=== PATIENT | male | born 1970 | race Caucasian/White ===

== ENCOUNTER 2017-01-02 12:09 | Inpatient (IN) | payer MEDICARE ==
[2017-01-02] MEDS ORDERED: Hydromorphone 1 mg/ml Ampule IV ONE (12:22)
[2017-01-02] MEDS ORDERED: Sodium Chloride 0.9% 1000 ML 1,000 ML IV STA (12:22)
[2017-01-02] MEDS ORDERED: BENADRYL 50 MG/ML IV ONE (12:22)
[2017-01-02] MEDS ORDERED: Sodium Chloride 0.9% 1000 ML 1,000 ML ONE (12:26)
[2017-01-02] MEDS ORDERED: Hydromorphone 1 mg/ml Ampule ONE (12:26)
[2017-01-02] MEDS ORDERED: BENADRYL 50 MG/ML ONE (12:26)
[2017-01-02] MEDS ORDERED: PHARMACY DOSING REQUEST IJ ONE (12:36)
[2017-01-02] MEDS ORDERED: Invanz 1 GM*** 1 G in Sodium Chloride 100ML MINI-BAG PLUS 100 ML IV ONE (12:38)
[2017-01-02 12:44] LABS: VBG BASE EXCESS -0.2 (-2.0-2.0); VBG CARBOXYHEMOGLOBIN 2.3 % T HGB (0.0-6.9); VBG HCO3- 25.9 meq/L (22-28); VBG HEMOGLOBIN 12.6; VBG POTASSIUM 4.2 (3.5-5.1); VBG pH 7.35 (7.32-7.42)
--- NOTE | 2017-01-02 12:44 | ERPHSYRPT ---
- History of Present Illness Time Seen by Provider: 01/02/17 12:22 Source: patient Patient Subjective Stated Complaint: PT REPORTS STEPPING ON TAC WEDNESDAY NIGHT- REPORTS SEVERE PAIN TO LEFT FOOT-LOW GRADE FEVER Triage Nursing Assessment: BRUISING ET OPENED AREA NOTED TO LEFT FOOT-NO DRAINAGE AT THIS TIME Physician History: CC: foot pain Hx: 46 y/o patient of Dr Rodrigues. He states stepped on a tack a few days ago. Now the foot is swollen, painful, and red. No fever or chills. Was at [facility] ER last night but apparently left AMA. He has poorly controlled DM. He sees and takes xanax. ILL: DM- on lantus Surg: Orchiectomy after injury Lower Extremities Pain: foot: left Allergies/Adverse Reactions: bupropion HCl [From Wellbutrin] Allergy (Verified 01/02/17 12:22) "makes my skin crawl" tetracycline Allergy (Verified 01/02/17 12:22) hives Home Medications: Carvedilol 6.25 mg [Coreg 6.25 MG] 6.25 mg PO BID 11/15/15 [History] Lovastatin 20 mg PO HS 11/15/15 [History] Metformin HCl 500 mg [Glucophage 500 MG] 500 mg PO DAILY 11/15/15 [History ] Hx Tetanus, Diphtheria Vaccination/Date Given: Yes (2015) Hx Influenza Vaccination/Date Given: No Hx Pneumococcal Vaccination/Date Given: No Immunizations Up to Date: Yes - Review of Systems Constitutional: No Fever, No Chills Eyes: No Symptoms Ears, Nose, & Throat: No Symptoms Cardiac: No Chest Pain Abdominal/Gastrointestinal: No Abdominal Pain Musculoskeletal: Joint Pain (left foot), No Back Pain, No Neck Pain Skin: Skin Lesions (left plantar), No Rash Neurological: No Focal Weakness, No Headache, No Parasthesia All Other Systems: Reviewed and Negative - Past Medical History Pertinent Past Medical History: Yes Neurological History: Seizures ENT History: No Pertinent History Cardiac History: Coronary Artery Disease, Hypertension, Myocardial Infarction ( [place]) Respiratory History: COPD Endocrine Medical History: Diabetes Type II Musculoskeletal History: Arthritis, Other GI Medical History: No Pertinent History History: No Pertinent History Psycho-Social History: Depression, Other Male Reproductive Disorders: No Pertinent History Other Medical History: [place] x 2 smoking 1.5PPD 30 + years, Sleep apnea pt states he has a CPAP at home the he wears occationally when it is working. - Past Surgical History Past Surgical History: Yes Neuro Surgical History: No Pertinent History Cardiac: No Pertinent History, Cardiac Catheterization, Cardiac Stent Respiratory: No Pertinent History Gastrointestinal: No Pertinent History Genitourinary: No Pertinent History, Other Musculoskeletal: No Pertinent History, Orthopedic Surgery Male Surgical History: Testicular Surgery Other Surgical History: Three heart stents, DVT - Social History Smoking Status: Current every day smoker How long have you smoked: 30 years Exposure to second hand smoke: No Drug Use: marijuana Patient Lives Alone: No - Nursing Vital Signs Nursing Vital Signs: Initial Vital Signs Temperature 98.8 F Temperature Source Oral Pulse Rate 108 Respiratory Rate 22 Blood Pressure [Right Arm] 110/69 Pain Intensity 8 - Physical Exam General Appearance: alert Eyes, Ears, Nose, Throat Exam: moist mucous membranes Neck Exam: normal inspection, non-tender, supple Cardiovascular/Respiratory Exam: chest non-tender, normal breath sounds, regular rate/rhythm Gastrointestinal/Abdominal Exam: non-tender, soft Back Exam: normal inspection Neuro/Tendon Exam: normal motor functions Mental Status Exam: alert, oriented x 3, cooperative Skin Exam: warm, dry, No rash SpO2 Interpretation: normal SpO2: 97 Oxygen Delivery: Room Air Comments: left foot has swelling and diffuse tenderness. Large plantar area with some necrosis. Some erythema. Pulse intact. - Course Nursing assessment & vital signs reviewed: Yes - Radiology Exams left foot X-ray Interpretation: Reviewed by me, Negative Ordered Tests: Active Orders 24 hr Category Date Time Status IV Insertion STAT Care 01/02/17 12:22 Active FOOT (MINIMUM 3 VIEWS) Stat Exams 01/02/17 12:23 Taken BLOOD CULTURE Stat Lab 01/02/17 12:45 Received CBC W DIFF Stat Lab 01/02/17 12:45 Completed CMP Stat Lab 01/02/17 12:45 Completed Erythrocyte Sedimentation Rate Stat Lab 01/02/17 12:45 Completed Lactic Acid Urgent Lab 01/02/17 12:43 Completed Lactic Acid Urgent Lab 01/02/17 13:33 Ordered UA Stat Lab 01/02/17 13:34 Received Urine Triage Profile Stat Lab 01/02/17 13:34 Received VENOUS BLOOD GAS Urgent Lab 01/02/17 12:43 Completed Medication Summary Generic Name Dose Route Start Last Admin Trade Name Freq PRN Reason Stop Dose Admin Vancomycin HCl 1.5 gm/ Sodium 500 mls @ 250 mls/hr 01/02/17 12:45 Chloride IV 02/01/17 12:44 Q12HT ELINOR Discontinued Medications Generic Name Dose Route Start Last Admin Trade Name Chris PRN Reason Stop Dose Admin Diphenhydramine HCl 25 mg 01/02/17 12:22 01/02/17 12:29 Benadryl 50 Mg/Ml IV 01/02/17 12:23 25 mg STAT ONE Administration Diphenhydramine HCl Confirm 01/02/17 12:26 Benadryl 50 Mg/Ml Administered 01/02/17 12:27 Dose 50 mg .ROUTE .STK-MED ONE Hydromorphone HCl 1 mg 01/02/17 12:22 01/02/17 12:29 Hydromorphone 1 Mg/Ml Ampule IV 01/02/17 12:23 1 mg STAT ONE Administration Hydromorphone HCl Confirm 01/02/17 12:26 Hydromorphone 1 Mg/Ml Ampule Administered 01/02/17 12:27 Dose 1 mg .ROUTE .STK-MED ONE Sodium Chloride 1,000 mls @ 999 mls/hr 01/02/17 12:22 01/02/17 12:30 Sodium Chloride 0.9% 1000 Ml IV 01/02/17 13:22 999 mls/hr .Q1H1M STA Administration Sodium Chloride Confirm 01/02/17 12:26 Sodium Chloride 0.9% 1000 Ml Administered 01/02/17 12:27 Dose 1,000 mls @ ud .ROUTE .STK-MED ONE Ertapenem 1 g/ Sodium Chloride 100 mls @ 100 mls/hr 01/02/17 12:38 01/02/17 12:52 IV 01/02/17 13:37 100 mls/hr STAT ONE Administration Non-Formulary Medication 1 each 01/02/17 12:36 01/02/17 12:57 Pharmacy Dosing Request IJ 01/02/17 12:37 1 each STAT ONE Administration Lab/Rad Data: Laboratory Result Diagrams 01/02/17 12:45 01/02/17 12:45 Laboratory Results 01/02/17 01/02/17 01/02/17 Range/Units 12:45 12:45 12:45 WBC 13.3 H (4.0-10.5) K/mm3 RBC 4.31 (4.1-5.6) M/mm3 Hgb 12.0 L (12.5-18.0) gm/dl Hct 37.2 L (42-50) % MCV 86.3 (78-100) fl MCH 27.8 (26-32) pg MCHC 32.3 (32-36) g/dl RDW 12.8 (11.5-14.0) % Plt Count 233 (150-450) K/mm3 MPV 11.4 H (6-9.5) fl Gran % 84.2 H (36.0-66.0) % Lymphocytes % 7.6 L (24.0-44.0) % Monocytes % 7.2 (0.0-12.0) % Eosinophils % 0.8 (0.00-5.0) % Basophils % 0.2 (0.0-0.4) % Basophils # 0.02 (0-0.4) ESR 74 H (0-15) mm/hr VBG pH (7.32-7.42) VBG pCO2 at Pat Temp (42-55) mm/Hg VBG pO2 at Pat Temp (25-40) mm/Hg VBG HCO3 (22-28) meq/L VBG O2 Sat (Chhaya) (95-100) VBG Base Excess (-2.0-2.0) VBG Hemoglobin VBG Carboxyhemoglobin (0.0-6.9) % T HGB POC Potassium (3.5-5.1) Sodium 130 L (136-145) mEq/L Potassium 4.0 (3.5-5.1) mEq/L Chloride 98 (98-107) mEq/L Carbon Dioxide 23.6 (21-32) mEq/L Anion Gap 12.5 (5-15) MEQ/L BUN 7 L (9-20) mg/dL Creatinine 0.86 (0.55-1.30) mg/dl Estimated GFR > 60 ML/MIN Glucose 447 H (70-110) MG/DL Lactic Acid (0.4-2.0) Calcium 8.1 L (8.5-10.1) mg/dL Total Bilirubin 0.2 (0.2-1.0) mg/dL AST 18 (15-37) U/L ALT 19 (12-78) U/L Alkaline Phosphatase 143 H (46-116) U/L Serum Total Protein 6.9 (6.4-8.2) gm/dL Albumin 2.5 L (3.4-5.0) g/dL 01/02/17 01/02/17 Range/Units 12:43 12:43 WBC (4.0-10.5) K/mm3 RBC (4.1-5.6) M/mm3 Hgb (12.5-18.0) gm/dl Hct (42-50) % MCV (78-100) fl MCH (26-32) pg MCHC (32-36) g/dl RDW (11.5-14.0) % Plt Count (150-450) K/mm3 MPV (6-9.5) fl Gran % (36.0-66.0) % Lymphocytes % (24.0-44.0) % Monocytes % (0.0-12.0) % Eosinophils % (0.00-5.0) % Basophils % (0.0-0.4) % Basophils # (0-0.4) ESR (0-15) mm/hr VBG pH 7.35 (7.32-7.42) VBG pCO2 at Pat Temp 47 (42-55) mm/Hg VBG pO2 at Pat Temp 41 H (25-40) mm/Hg VBG HCO3 25.9 (22-28) meq/L VBG O2 Sat (Chhaya) 80.0 L (95-100) VBG Base Excess -0.2 (-2.0-2.0) VBG Hemoglobin 12.6 VBG Carboxyhemoglobin 2.3 (0.0-6.9) % T HGB POC Potassium 4.2 (3.5-5.1) Sodium (136-145) mEq/L Potassium (3.5-5.1) mEq/L Chloride (98-107) mEq/L Carbon Dioxide (21-32) mEq/L Anion Gap (5-15) MEQ/L BUN (9-20) mg/dL Creatinine (0.55-1.30) mg/dl Estimated GFR ML/MIN Glucose (70-110) MG/DL Lactic Acid 3.0 H (0.4-2.0) Calcium (8.5-10.1) mg/dL Total Bilirubin (0.2-1.0) mg/dL AST (15-37) U/L ALT (12-78) U/L Alkaline Phosphatase (46-116) U/L Serum Total Protein (6.4-8.2) gm/dL Albumin (3.4-5.0) g/dL - Progress Progress Note: 01/02/17 13:43 Medicated. IV Vanc and invanz given. IVF bolus given. He needs admission. Called DR mensah for Bjorn who will admit to IP. Discussed with .: Suzanne Will see patient in: hospital (full admit) Counseled pt/family regarding: lab results, diagnosis, need for follow-up, rad results - Departure Time of Disposition: 13:44 Departure Disposition: In-patient Admission Clinical Impression: Diabetic infection of left foot, Uncontrolled diabetes mellitus Condition: Fair Critical Care Time: No Referrals: VINNIE RODRIGUES [Primary Care Provider] -
[2017-01-02 12:50] LABS: BASOPHIL % 0.2 % (0.0-0.4); Eosinophil % 0.8 % (0.00-5.0); Granulocytes % 84.2 % (36.0-66.0); Lymphocytes % 7.6 % (24.0-44.0); Mean Cell Volume 86.3 fl (78-100); Mean Corpuscular Hemoglobin 27.8 pg (26-32); Mean Platelet Volume 11.4 fl (6-9.5); Monocytes % 7.2 % (0.0-12.0); Platelet Count 233 K/mm3 (150-450); Red Blood Count 4.31 M/mm3 (4.1-5.6); Red Cell Distribution Width 12.8 % (11.5-14.0); White Blood Count 13.3 K/mm3 (4.0-10.5)
[2017-01-02 13:09] LABS: BILIRUBIN,TOTAL 0.2 mg/dL (0.2-1.0); BLOOD UREA NITROGEN 7 mg/dL (9-20); SGPT/ALT 19 U/L (12-78); Total Protein 6.9 gm/dL (6.4-8.2)
[2017-01-02 13:22] LABS: ALBUMIN 2.5 g/dL (3.4-5.0); ALKALINE PHOSPHATASE 143 U/L (46-116); ANION GAP 12.5 MEQ/L (5-15); CHLORIDE 98 mEq/L (98-107); Carbon Dioxide 23.6 mEq/L (21-32); Glucose 447 MG/DL (70-110); SGOT/AST 18 U/L (15-37); SODIUM 130 mEq/L (136-145)
[2017-01-02 13:42] LABS: Collection Type VOID
[2017-01-02 13:43] LABS: COMPLETE URINE MICROSCOPIC? NO
[2017-01-02] MEDS ORDERED: NovoLOG Insulin SQ ONE (13:45)
[2017-01-02] MEDS ORDERED: NovoLOG Insulin ONE (13:54)
[2017-01-02] MEDS: VANCOCIN 1 GM VIAL*** 1.5 GM in Sodium Chloride 0.9% 500 ML 500 ML IV SCH ×2 (13:57→21:17)
[2017-01-02] MEDS ORDERED: PHARMACY DOSING REQUIRED: VANCOMYCIN IV ONE (14:33)
[2017-01-02] MEDS: TYLENOL 325 MG PO PRN (16:07)
[2017-01-02] MEDS: Sodium Chloride 0.9% 1000 ML 1,000 ML IV SCH (16:10)
[2017-01-02] MEDS ORDERED: Zofran 4 MG/2 ML VIAL IV PRN (17:12)
[2017-01-02] MEDS: NovoLOG Insulin SQ PRN (17:18)
[2017-01-02] MEDS: DILAUDID 2 MG INJECTION IV PRN (17:32)
--- NOTE | 2017-01-02 20:21 | PCM.HP ---
History of Present Illness - Chief Complaint Chief Complaint: Diabetic Foot infection History of Present Illness: is a 46 year old male who reports he stepped on a carpet tack 4 days ago at home, he is a diabetic and doesn't have much sensation. His heel became swollen and started draining purulent material and he has pain the heel now. He denies any known fever. - Review of Systems Constitutional: No Fever, No Chills Cardiac: No Chest Pain, No Edema, No Syncope Abdominal/Gastrointestinal: No Abdominal Pain, No Nausea, No Vomiting, No Diarrhea Skin: Other (heel drainage, pain and swelling) Medications & Allergies Home Medications: Home Medication List Metformin HCl 500 mg [Glucophage 500 MG] 500 mg PO BID 11/15/15 [History Confirmed 01/02/17] Alprazolam [Xanax 0.5 mg] 1 - 2 tab PO Q4HPRN PRN 01/02/17 [History Confirmed ] Amlodipine Besylate 5 mg [Norvasc 5 mg] 5 mg PO DAILY 01/02/17 [History Confirmed 01/02/17] Insulin Glargine [Lantus Insulin] 50 units SQ HS 01/02/17 [History Confirmed ] Lisinopril 5 mg [Zestril 5 MG] 5 mg PO DAILY 01/02/17 [History Confirmed 01/02/17] Metoprolol Tartrate 50 mg [Lopressor 50 MG] 50 mg PO BID 01/02/17 [ History Confirmed 01/02/17] Sertraline HCl 50 mg [Zoloft 50 mg Tablet] 50 mg PO DAILY 01/02/17 [History Confirmed 01/02/17] Sumatriptan Succinate [Imitrex] 25 mg PO Q2H/PRN PRN 01/02/17 [History Confirmed 01/02/17] Triamterene/Hydrochlorothiazid [Triamterene-Hctz 37.5-25 mg Cp] 0.5 tab PO DAILY 01/02/17 [History Confirmed 01/02/17] Allergies/Adverse Reactions: Allergies Allergy/AdvReac Type Severity Reaction Status Date / Time bupropion HCl Allergy Verified 01/02/17 12:22 [From Wellbutrin] tetracycline Allergy Verified 01/02/17 12:22 - Past Medical History Past Medical History: Yes Neurological History: Seizures ENT History: No Pertinent History Cardiac History: Coronary Artery Disease, Hypertension, Myocardial Infarction ( [place]) Respiratory History: COPD Endocrine Medical History: Diabetes Type II Musculoskelatal History: Arthritis, Other GI Medical History: No Pertinent History History: No Pertinent History Pyscho-Social History: Depression, Other Male Reproductive Disorders: No Pertinent History Comment: [place] x 2 smoking 1.5PPD 30 + years, Sleep apnea pt states he has a CPAP at home the he wears occationally when it is working. - Past Surgical History Past Surgical History: Yes Neuro Surgical History: No Pertinent History Cardiac History: Cardiac Catheterization, Cardiac Stent Respiratory Surgery: No Pertinent History GI Surgical History: No Pertinent History Genitourinary Surgical Hx: Other Musculskeletal Surgical Hx: Orthopedic Surgery Male Surgical History: Testicular Surgery Other Surgical History: Three heart stents, DVT - Social History Smoking Status: Current every day smoker How long have you smoked: 30 years Exposure to second hand smoke: Yes Alcohol: Rarely Drug Use: marijuana - Physical Exam Vital Signs: Vital Signs - 24 hr Temp Pulse Resp BP Pulse Ox 01/02/17 15:17 98.9 F 108 H 20 123/71 93 L 01/02/17 14:38 98.9 F 108 H 20 123/71 93 L 01/02/17 14:00 104 H 16 107/69 96 01/02/17 13:44 97 01/02/17 12:48 108 H 22 110/69 96 01/02/17 12:15 98.8 F 109 H 20 120/70 97 General Appearance: no apparent distress, alert Respiratory Exam: normal breath sounds, lungs clear, No respiratory distress Cardiovascular Exam: regular rate/rhythm, normal heart sounds, normal peripheral pulses Gastrointestinal/Abdomen Exam: soft Extremity Exam: other (left heel large amount of soft tissue swelling, erythema and tenderness. mild drainage from open area on plantar surface of central area of heel) Results - Labs Lab/Micro Results: Accuchecks Date 01/02/17 Time 16:30 Accucheck Value: 165 Accuchecks Date 01/02/17 Time 16:30 Accucheck Value: 165 - Other Procedures and Tests Respiratory Therapy 01/02/17 16:26 BiPap/CPAP Assessment ROUTINE Assessment/Plan (1) Diabetic infection of left foot Current Visit: Yes Status: Acute Assessment & Plan: continue vanc and invanz, wound culture pending. due to diabetes needs broad coverage, likely polymicrobial diabetic infection. will monitor closely, may require further imaging to evaluate for osteo Code(s): E11.69 - TYPE 2 DIABETES MELLITUS WITH OTHER SPECIFIED COMPLICATION; L08.9 - LOCAL INFECTION OF THE SKIN AND SUBCUTANEOUS TISSUE, UNSP (2) Uncontrolled diabetes mellitus Current Visit: Yes Status: Acute Assessment & Plan: cover with insulin Code(s): E11.65 - TYPE 2 DIABETES MELLITUS WITH HYPERGLYCEMIA
[2017-01-02] MEDS ORDERED: xanAX 0.5 MG PO PRN (20:28)
[2017-01-02] MEDS ORDERED: NORVASC 5 MG PO ONE ×2 (20:30→22:00)
[2017-01-02] MEDS ORDERED: Zestril 5 MG PO ONE ×2 (21:00→22:00)
--- NOTE | 2017-01-02 21:07 | XRAY ---
Indication: Plantar puncture wound. Comparison: None 3 nonweightbearing views of the left foot obtained. No bony, articular, or soft tissue abnormalities.
[2017-01-02] MEDS ORDERED: ZOLOFT 50 MG TABLET PO ONE (22:00)
[2017-01-02] MEDS ORDERED: Lopressor 50 MG PO SCH ×2 (22:00)
[2017-01-02] MEDS: NICODERM CQ 14 MG TOP SCH (22:56)
[2017-01-03] MEDS: Sodium Chloride 0.9% 1000 ML 1,000 ML IV SCH ×2 (02:21→14:09)
[2017-01-03 05:41] LABS: BASOPHIL % 0.2 % (0.0-0.4); Eosinophil % 0.7 % (0.00-5.0); Granulocytes % 84.5 % (36.0-66.0); Lymphocytes % 7.5 % (24.0-44.0); Mean Cell Volume 85.9 fl (78-100); Mean Corpuscular Hemoglobin 27.4 pg (26-32); Monocytes % 7.1 % (0.0-12.0); Platelet Count 253 K/mm3 (150-450); Red Blood Count 4.33 M/mm3 (4.1-5.6); Red Cell Distribution Width 12.9 % (11.5-14.0); White Blood Count 15.3 K/mm3 (4.0-10.5)
[2017-01-03] MEDS ORDERED: DILAUDID 2 MG INJECTION ONE (05:45)
[2017-01-03] MEDS: DILAUDID 2 MG INJECTION IV PRN ×5 (05:48→23:37)
[2017-01-03 05:56] LABS: ALBUMIN 2.3 g/dL (3.4-5.0); ALKALINE PHOSPHATASE 300 U/L (46-116); ANION GAP 11.4 MEQ/L (5-15); BILIRUBIN,TOTAL 0.3 mg/dL (0.2-1.0); BLOOD UREA NITROGEN 11 mg/dL (9-20); CHLORIDE 101 mEq/L (98-107); Carbon Dioxide 24.6 mEq/L (21-32); Glucose 179 MG/DL (70-110); Potassium 4.2 mEq/L (3.5-5.1); SGOT/AST 25 U/L (15-37); SGPT/ALT 24 U/L (12-78); SODIUM 133 mEq/L (136-145); Total Protein 6.7 gm/dL (6.4-8.2)
--- NOTE | 2017-01-03 06:33 | PCM.NOTE ---
Date and Time: 01/03/17630 Subjective Assessment: left foot pain still rather severe, improved with dilaudid. has some drainage, no new complaints. elevated sed rate noted Objective Exam General Appearance: no apparent distress, alert Respiratory Exam: normal breath sounds, lungs clear, No respiratory distress Cardiovascular Exam: regular rate/rhythm, normal heart sounds Gastrointestinal/Abdomen Exam: soft, No tenderness, No mass Extremity Exam: other (left heel with soft tissue swelling, mild purulent drainage, surrounding erythema unchanged) OBJECTIVE DATA Vital Signs: Vital Signs - 24 hr Temp Pulse Resp BP Pulse Ox 01/03/17 03:54 98.1 F 73 20 118/81 97 01/03/17 00:00 97.3 F 69 20 123/66 97 01/02/17 20:00 97.0 F 67 22 120/63 96 01/02/17 15:17 98.9 F 108 H 20 123/71 93 L 01/02/17 14:38 98.9 F 108 H 20 123/71 93 L 01/02/17 14:00 104 H 16 107/69 96 01/02/17 13:44 97 01/02/17 12:48 108 H 22 110/69 96 01/02/17 12:15 98.8 F 109 H 20 120/70 97 Pain Assessment - Last Documented Pain Intensity 5 Pain Scale Used 0-10 Pain Scale Intake and Output: Intake & Output 12/31/16 01/01/17 01/02/17 01/03/17 11:59 11:59 11:59 11:59 Intake Total 4462 Balance 4462 Weight 95.935 kg Lab Results: Accuchecks Date 01/02/17 Date 01/02/17 Time 22:00 Time 16:30 Accucheck Value: 112 Accucheck Value: 165 Lab Results-Last 24 Hours 01/03/17 01/03/17 01/03/17 Range/Units 05:30 05:30 05:30 WBC 15.3 H (4.0-10.5) K/mm3 RBC 4.33 (4.1-5.6) M/mm3 Hgb 11.9 L (12.5-18.0) gm/dl Hct 37.2 L (42-50) % MCV 85.9 (78-100) fl MCH 27.4 (26-32) pg MCHC 32.0 (32-36) g/dl RDW 12.9 (11.5-14.0) % Plt Count 253 (150-450) K/mm3 MPV 11.0 H (6-9.5) fl Gran % 84.5 H (36.0-66.0) % Lymphocytes % 7.5 L (24.0-44.0) % Monocytes % 7.1 (0.0-12.0) % Eosinophils % 0.7 (0.00-5.0) % Basophils % 0.2 (0.0-0.4) % Basophils # 0.03 (0-0.4) ESR 82 H (0-15) mm/hr Sodium 133 L (136-145) mEq/L Potassium 4.2 (3.5-5.1) mEq/L Chloride 101 (98-107) mEq/L Carbon Dioxide 24.6 (21-32) mEq/L Anion Gap 11.4 (5-15) MEQ/L BUN 11 (9-20) mg/dL Creatinine 0.63 (0.55-1.30) mg/dl Estimated GFR > 60 ML/MIN Glucose 179 H (70-110) MG/DL Calcium 8.2 L (8.5-10.1) mg/dL Total Bilirubin 0.3 (0.2-1.0) mg/dL AST 25 (15-37) U/L ALT 24 (12-78) U/L Alkaline Phosphatase 300 H (46-116) U/L Serum Total Protein 6.7 (6.4-8.2) gm/dL Albumin 2.3 L (3.4-5.0) g/dL Radiology Exams: Radiology Procedures Category Date Time Status MRI LOWER EXT JOINT W/CONTRAST [MRI] Urgent Exams 01/03/17 06:30 Ordered Assessment/Plan (1) Diabetic infection of left foot Current Visit: Yes Status: Acute Assessment & Plan: continue vanc and invanz, elevated sed rate worrisome for osteo. will get MRI left foot with contrast to evaluate bony involvement Code(s): E11.69 - TYPE 2 DIABETES MELLITUS WITH OTHER SPECIFIED COMPLICATION; L08.9 - LOCAL INFECTION OF THE SKIN AND SUBCUTANEOUS TISSUE, UNSP (2) Uncontrolled diabetes mellitus Current Visit: Yes Status: Acute Assessment & Plan: last 2 accuchecks very well controlled since admission, was elevated on arrival. Code(s): E11.65 - TYPE 2 DIABETES MELLITUS WITH HYPERGLYCEMIA
[2017-01-03] MEDS ORDERED: [UNRECOGNIZED DRUG - OTHER] PO SCH (10:00)
[2017-01-03] MEDS: Lopressor 50 MG PO SCH ×2 (10:09→22:43)
[2017-01-03] MEDS: NORVASC 5 MG PO SCH (10:09)
[2017-01-03] MEDS: Zestril 5 MG PO SCH (10:09)
[2017-01-03] MEDS: Invanz 1 GM*** 1 G in Sodium Chloride 100ML MINI-BAG PLUS 100 ML IV SCH (10:10)
[2017-01-03] MEDS: ENOXAPARIN SODIUM SQ SCH (10:10)
[2017-01-03] MEDS: Maxzide-25MG Tablet PO SCH (10:26)
[2017-01-03] MEDS: ZOLOFT 50 MG TABLET PO SCH (10:28)
[2017-01-03] MEDS: VANCOCIN 1 GM VIAL*** 1.5 GM in Sodium Chloride 0.9% 500 ML 500 ML IV SCH ×2 (10:58→22:43)
[2017-01-03] MEDS: NovoLOG Insulin SQ PRN ×3 (11:59→22:42)
[2017-01-03] MEDS: NICODERM CQ 14 MG TOP SCH (14:20)
[2017-01-03] MEDS: Lantus Insulin SQ SCH (22:41)
[2017-01-04] MEDS: Sodium Chloride 0.9% 1000 ML 1,000 ML IV SCH ×3 (00:51→18:18)
[2017-01-04] MEDS: DILAUDID 2 MG INJECTION IV PRN ×3 (04:02→20:41)
[2017-01-04] MEDS ORDERED: TROUGH DRUG LEVELS IJ ONE (09:30)
[2017-01-04 09:56] LABS: ALBUMIN 2.2 g/dL (3.4-5.0); ALKALINE PHOSPHATASE 234 U/L (46-116); ANION GAP 9.7 MEQ/L (5-15); BILIRUBIN,TOTAL 0.3 mg/dL (0.2-1.0); BLOOD UREA NITROGEN 8 mg/dL (9-20); CHLORIDE 102 mEq/L (98-107); Carbon Dioxide 29.9 mEq/L (21-32); Glucose 175 MG/DL (70-110); SGOT/AST 13 U/L (15-37); SGPT/ALT 19 U/L (12-78); SODIUM 138 mEq/L (136-145)
[2017-01-04 10:00] LABS: BASOPHIL % 0.1 % (0.0-0.4); Eosinophil % 0.8 % (0.00-5.0); Granulocytes % 83.1 % (36.0-66.0); Lymphocytes % 9.1 % (24.0-44.0); Mean Cell Volume 86.1 fl (78-100); Mean Platelet Volume 11.7 fl (6-9.5); Monocytes % 6.9 % (0.0-12.0); Platelet Count 252 K/mm3 (150-450); Red Blood Count 4.24 M/mm3 (4.1-5.6); Red Cell Distribution Width 12.8 % (11.5-14.0); White Blood Count 14.7 K/mm3 (4.0-10.5)
[2017-01-04] MEDS: TYLENOL 325 MG PO PRN ×2 (10:13→19:35)
[2017-01-04] MEDS: Lopressor 50 MG PO SCH ×2 (10:14→21:44)
[2017-01-04] MEDS: Maxzide-25MG Tablet PO SCH (10:14)
[2017-01-04] MEDS: xanAX 0.5 MG PO PRN (10:14)
[2017-01-04] MEDS: NORVASC 5 MG PO SCH (10:15)
[2017-01-04] MEDS: ZOLOFT 50 MG TABLET PO SCH (10:15)
[2017-01-04] MEDS: Zestril 5 MG PO SCH (10:15)
[2017-01-04] MEDS: Invanz 1 GM*** 1 G in Sodium Chloride 100ML MINI-BAG PLUS 100 ML IV SCH (10:16)
[2017-01-04] MEDS: ENOXAPARIN SODIUM SQ SCH (10:42)
--- NOTE | 2017-01-04 10:46 | CONS ---
CONSULT DATE: 01/04/17 This patient was seen for Dr. Hanks or Dr. Beauchamp whoever is on-call for our group today. Was asked that I see as I was down here seeing some other patients. HISTORY OF PRESENT ILLNESS: 46 y/o diabetic gentleman apparently stepped on a carpet tack last week. Had severe pain. Had fever. Had WBC of 15. He apparently was in [facility] over the weekend and later came here reportedly a couple of days ago and was admitted for IV antibiotics. PAST MEDICAL HISTORY: Heart disease, hypertension, myocardial infarction, seizures, type 2 diabetes, and arthritis. History of deep vein thrombosis in the past reportedly. PAST SURGICAL HISTORY: Had orchiectomy in the past. He denied any foot surgery in the past, although it should be noted that he has followed up with Dr. Joseph in the past. Has had 3 coronary stents. HOME MEDICATIONS: Has been on metformin, lovastatin, carvedilol for some hypertension. ALLERGIES: WELLBUTRIN AND TETRACYCLINE. SOCIAL HISTORY: Smokes a pack and a half per day for years. Uses CPAP at home. No alcohol abuse. He also uses marijuana at times. REVIEW OF SYSTEMS: 12 systems reviewed per admission assessment pertinent for as noted above. PHYSICAL EXAMINATION: GENERAL: Chronically ill gentleman. HEENT: Sclerae nonicteric. NECK: No JVD. CHEST: Equal excursion. Nonlabored breathing. CVS: Regular rhythm. He does appear to have powerful dorsalis pedis pulses and posterior tibial on this left foot. ABDOMEN: Soft, nondistended. NEURO: Alert, moving extremities grossly symmetrically. EXTREMITIES: Pertinent for the left foot. There is a puncture wound on the plantar surface of the foot with some discoloration or slight cyanosis, almost bruised-like appearance out towards the lateral aspect of the foot. Whether this is any infection or not it is unclear as there is a small amount of drainage from the open wound. Hgb A1C is 12.3, so obviously not a good controlled diabetic. His WBC was apparently 15.3. They said that was yesterday's result. IMPRESSION: 1. DIABETIC FOOT INFECTION. Feel likely would need benefit of debridement. [place] long-term august, likely needs podiatry opinion as he followed up with Dr. Joseph in the past, but currently needs acute debridement. He understands the risk of bleeding; infection; that there may be some tissue necrosis out laterally and may have to filet this whole area up to allow for drainage. He understands there is a risk of ongoing infection or necrosis surrounding the area even risk of forefoot or even limb or foot loss given his smoking history, heart disease, peripheral vascular disease, and long-standing diabetes that does not appear in good control with an A1C of 12 when he was admitted. He understands the very high risk of ongoing infection or necrosis possibly requiring other procedures or even amputation if he fails to improve. He may need opinion from electronic equipment maint tech about antibiotic bead placement. Otherwise, continue IV antibiotics. Unfortunately, he had breakfast this morning. Will see if anesthesia approves doing his debridement today or not. Thank you for the consult. Again, this patient was seen for Dr. Hanks or Dr. Beauchamp whoever is on-call for our group today.
[2017-01-04 10:56] LABS: Mean Corpuscular Hemoglobin 27.5 pg (26-32)
[2017-01-04] MEDS ORDERED: Lactated Ringers 1,000 ML IV SCH (11:30)
[2017-01-04] MEDS: VANCOCIN 1 GM VIAL*** 1.5 GM in Sodium Chloride 0.9% 500 ML 500 ML IV SCH (11:38)
[2017-01-04] MEDS: NovoLOG Insulin SQ SCH ×2 (11:50→16:46)
--- NOTE | 2017-01-04 12:44 | PCM.NOTE ---
Date and Time: 01/04/17 1239 Subjective Assessment: Patient continues to have severe pain in his left foot. He reports that he is checking his blood glucoses at home but he has a history of noncompliance and a history of NV and states he only occasionally takes an aspirin. He reports he stepped on a carpet tack on Wednesday and was able to pull it out but didn't realize it was there right away. - Review of Systems Constitutional: Other (pain in his left foot) Eyes: No Symptoms Ears, Nose, & Throat: No Symptoms Respiratory: No Symptoms Cardiac: No Symptoms Abdominal/Gastrointestinal: No Symptoms Genitourinary Symptoms: No Symptoms Musculoskeletal: No Symptoms Skin: Cellulitis, Other (Discoloration of left heel and lateral aspect of foot) Objective Exam General Appearance: mild distress, obese Neurologic Exam: alert, cooperative, normal mood/affect Skin Exam: normal color, warm, dry, other (left heel with discoloration and erythema along the lateral aspect, some active drainage of pus mixed with blood. ) OBJECTIVE DATA Vital Signs: Vital Signs - 24 hr Temp Pulse Resp BP Pulse Ox 01/04/17 11:49 98.2 F 85 18 112/74 94 L 01/04/17 07:21 98.6 F 100 H 18 132/83 92 L 01/04/17 04:00 98.5 F 75 17 113/75 93 L 01/04/17 00:00 98.9 F 93 H 24 115/72 91 L 01/03/17 19:58 98.1 F 91 H 14 96/54 93 L 01/03/17 16:00 98.1 F 80 19 99/50 96 Pain Assessment - Last Documented Pain Intensity 10 Pain Scale Used 0-10 Pain Scale Intake and Output: Intake & Output 01/02/17 01/03/17 01/04/17 01/05/17 06:59 06:59 06:59 06:59 Intake Total 4462 4190 480 Output Total 550 Balance 4461 2290 480 Weight 95.935 kg Lab Results: Accuchecks Date 01/04/17 Date 01/03/17 Date 01/03/17 Time 07:30 Time 22:00 Time 16:30 Accucheck Value: 138 Accucheck Value: 286 Accucheck Value: 235 Lab Results-Last 24 Hours 01/03/17 01/04/17 01/04/17 Range/Units 05:25 09:28 09:28 WBC 14.7 H (4.0-10.5) K/mm3 RBC 4.24 (4.1-5.6) M/mm3 Hgb 11.7 L (12.5-18.0) gm/dl Hct 36.5 L (42-50) % MCV 86.1 (78-100) fl MCH 27.5 (26-32) pg MCHC 32.1 (32-36) g/dl RDW 12.8 (11.5-14.0) % Plt Count 252 (150-450) K/mm3 MPV 11.7 H (6-9.5) fl Gran % 83.1 H (36.0-66.0) % Lymphocytes % 9.1 L (24.0-44.0) % Monocytes % 6.9 (0.0-12.0) % Eosinophils % 0.8 (0.00-5.0) % Basophils % 0.1 (0.0-0.4) % Basophils # 0.02 (0-0.4) Sodium 138 (136-145) mEq/L Potassium 4.0 (3.5-5.1) mEq/L Chloride 102 (98-107) mEq/L Carbon Dioxide 29.9 (21-32) mEq/L Anion Gap 9.7 (5-15) MEQ/L BUN 8 L (9-20) mg/dL Creatinine 0.66 (0.55-1.30) mg/dl Estimated GFR > 60 ML/MIN Glucose 175 H (70-110) MG/DL Hemoglobin A1c 12.3 H (4.5-6.2) Calcium 8.0 L (8.5-10.1) mg/dL Total Bilirubin 0.3 (0.2-1.0) mg/dL AST 13 L (15-37) U/L ALT 19 (12-78) U/L Alkaline Phosphatase 234 H (46-116) U/L Serum Total Protein 6.0 L (6.4-8.2) gm/dL Albumin 2.2 L (3.4-5.0) g/dL Vancomycin Trough (10-20) UG/ML 01/04/17 Range/Units 09:28 WBC (4.0-10.5) K/mm3 RBC (4.1-5.6) M/mm3 Hgb (12.5-18.0) gm/dl Hct (42-50) % MCV (78-100) fl MCH (26-32) pg MCHC (32-36) g/dl RDW (11.5-14.0) % Plt Count (150-450) K/mm3 MPV (6-9.5) fl Gran % (36.0-66.0) % Lymphocytes % (24.0-44.0) % Monocytes % (0.0-12.0) % Eosinophils % (0.00-5.0) % Basophils % (0.0-0.4) % Basophils # (0-0.4) Sodium (136-145) mEq/L Potassium (3.5-5.1) mEq/L Chloride (98-107) mEq/L Carbon Dioxide (21-32) mEq/L Anion Gap (5-15) MEQ/L BUN (9-20) mg/dL Creatinine (0.55-1.30) mg/dl Estimated GFR ML/MIN Glucose (70-110) MG/DL Hemoglobin A1c (4.5-6.2) Calcium (8.5-10.1) mg/dL Total Bilirubin (0.2-1.0) mg/dL AST (15-37) U/L ALT (12-78) U/L Alkaline Phosphatase (46-116) U/L Serum Total Protein (6.4-8.2) gm/dL Albumin (3.4-5.0) g/dL Vancomycin Trough 7.7 L (10-20) UG/ML Radiology Exams: Radiology Procedures Category Date Time Status ARTERIAL BILAT LOWER EXTREMITY [US] Stat Exams 01/04/17 10:36 Taken Multi-Disciplinary Progress Notes: Multi-Disciplinary Progress Notes 01/04/17 10:37 Physical Therapy Note by Maru Rapp PALLIATIVE CARE TO LEFT HEEL WITH HIBICLENS /STERILE WATER SOAK; SITE OF PUNCTURE WOUND THAT HAS EVOLVED SINCE ONSET WEDNESDAY INTO AN EXTREMELY PAINFUL DISCOLORED LATERAL HEEL WITH LATERAL 5TH RAY REFERRED PAIN. SURGERY CONSULT = INCISIONAL DEBRIDEMENT THIS PM. PATIENT IS DIABETIC AND A SMOKER. LE ARTERIAL DOPPLERS ORDERED BY SURGEON THIS AM. Initialized on 01/04/17 10:37 - END OF NOTE Assessment/Plan (1) Diabetic infection of left foot Current Visit: Yes Status: Acute Assessment & Plan: General Surgeon and PT consulted today and planning on taking him to the OR for debridement today. Continue broad spectrum coverage of antibiotics. Hopefully a wound culture can be obtained during surgery today. Continue with IV dilaudid for pain control. Patient could not tolerate a MRI today. Per verbal report from nursing the radiologist suggested a bone scan, but now patient is going to surgery so he can't have this done today and the first available again will be or Wednesday of this week per verbal report. Code(s): E11.69 - TYPE 2 DIABETES MELLITUS WITH OTHER SPECIFIED COMPLICATION; L08.9 - LOCAL INFECTION OF THE SKIN AND SUBCUTANEOUS TISSUE, UNSP (2) Uncontrolled diabetes mellitus Current Visit: Yes Status: Acute Qualifiers: Diabetes mellitus type: type 2 Diabetes mellitus complication status: with skin complications Diabetes mellitus complication detail: with other skin complication Assessment & Plan: His hgb A1C is markedly elevated. He has reported in the past he does not want to take his medications. Will try to give diabetic education while here and if he needs any scripts for supplies or medications, I am happy to write these for him. Code(s): E11.65 - TYPE 2 DIABETES MELLITUS WITH HYPERGLYCEMIA (3) History of coronary artery disease Current Visit: Yes Status: Acute Assessment & Plan: He reports his painting supervisor is Dr. Goode. Will try to get records from him. Old records from my office reveal NV 07/04 (3 stents) and 11/05. Code(s): Z86.79 - PERSONAL HISTORY OF OTHER DISEASES OF THE CIRCULATORY SYSTEM
[2017-01-04] MEDS ORDERED: BABY ASPIRIN 81 MG CHEW PO ONE (12:50)
--- NOTE | 2017-01-04 14:12 | XRAY ---
Exam: Bilateral lower extremity duplex Doppler arterial ultrasound exam from 01/04/2017. Comparison: None. Indication: Left foot ulcer. Findings: On the right side, peak systolic flow velocities in centimeters per second measure 88.1 within the common femoral artery, 112.8 within the superficial femoral artery, 47.3 within the popliteal artery, 47.3 within the distal posterior tibial artery, and 39.5 within the dorsalis pedis artery. Doppler waveforms were triphasic within the right common femoral artery, biphasic within the superficial femoral artery, triphasic within the popliteal artery, and biphasic within both the distal posterior tibial artery and dorsalis pedis artery. The ankle-brachial index measures 0.69. This suggests moderate lower extremity arterial ischemic disease. Calhoun scale and color flow images reveal mild to moderate mixed calcific and soft plaque within the common femoral artery and superficial femoral artery. There is also mild calcified plaque within the popliteal artery On the left side, peak systolic flow velocities in centimeters per second measure 89.6 within the common femoral artery, 74.1 within the superficial femoral artery, 48.2 within the popliteal artery, 71.5 within the distal posterior tibial artery, and 35.3 within the dorsalis pedis artery. Doppler waveforms were triphasic within the left common femoral artery, monophasic within the superficial femoral artery, monophasic within the popliteal artery, monophasic within the distal posterior tibial artery, and monophasic within the dorsalis pedis artery. This would suggest marked ischemic disease. However, the left ankle-brachial index was measured at 0.79 which would suggest only mild to moderate arterial ischemic disease. I would give more credence to the multiple areas of monophasic waveforms on the left rather than the ankle-brachial index.. On the left side, there is mild to moderate mixed calcific and soft plaque within the common femoral artery, marked calcific and soft plaque within the mid superficial femoral artery, and mild calcific plaque within the popliteal artery. Impression: 1. Doppler waveforms suggest marked arterial stenotic disease within the left lower extremity, apparently beginning within the mid superficial femoral artery. Monophasic waveforms were seen at this level and distally within the left lower extremity. 2. Mild to moderate arterial stenotic disease is suspected within the right lower extremity, but not to the degree seen on the left.
--- NOTE | 2017-01-04 15:06 | OP ---
SURGERY DATE/TIME: 01/04/2017 1325 PREOPERATIVE DIAGNOSIS: Diabetic foot infection with areas of necrosis status post stepping on a tack a few days ago. POSTOPERATIVE DIAGNOSIS: Diabetic foot infection with areas of necrosis status post stepping on a tack a few days ago. PROCEDURE: Excisional debridement of diabetic left foot infection skin, subcutaneous tissue as well as portion of underlying fascia with 6 x 3 cm left foot. SURGEON: Dr. Mp Collier. MACHINE BURRER: Dixie Maciel, Medical Student III. ANESTHESIA: General. ESTIMATED BLOOD LOSS: Minimal. INDICATIONS: As noted above. Risks and benefits explained in detail and not limited to and consent obtained. As per the surgical consult, the patient had area of foot infection failing to improve. Discoloration of skin out to lateral. It was felt he needed excisional debridement to rule out any other deeper infection collection. Risks and benefits explained in detail including the very real risk of ongoing infection and necrosis possibly requiring other procedures even risk of limb loss. Consent had been obtained. It felt like he had palpable pedal pulses and definitely had warm, viable toes with good capillary refill. Doppler study had been ordered for the patient. Apparently was not cooperative for being done according to the staff. It did feel like he had a palpable dorsalis pedis pulse. Consent had been obtained. DESCRIPTION OF PROCEDURE AND FINDINGS: The patient was taken to the operating room. Spinal anesthesia was induced. Foot was prepped and draped in usual sterile fashion. After official time out and no disagreement of planned procedure, starting with the open wound it was draining some drainage. Dissection carried out around this and deeper and sloughing of the skin out laterally so this was this plantar aspect out laterally about 6 cm, transversely and 3 cm wide. Sharp debridement taken to bleeding, oozing tissue debriding the skin as well as some devitalized subcutaneous fat as well as a portion of the underlying fascia. He had 6 x 3 cm area left foot. Irrigation of deeper space of foot did not reveal any jorge purulence at this time. A small piece of Iodoform was left to allow for any drainage. Sterile dressing was applied. The patient tolerated the procedure well. There were no immediate complications. Again sharp debridement with scalpel had been taken to bleeding, oozing viable tissue that the patient had available. There were no friends or family to discuss the findings with at this time. Continue normal saline wet to dry until physical therapy wound care team has any other recommendations. This patient was seen for Dr. Hanks or Dr. Beauchamp who was project control officer for our group today.
[2017-01-04] MEDS ORDERED: MORPHINE SULFATE 4 MG INJ IV PRN (15:23)
[2017-01-04] MEDS: NICODERM CQ 14 MG TOP SCH (19:33)
[2017-01-04] MEDS: Lantus Insulin SQ SCH (21:46)
[2017-01-04] MEDS: VANCOCIN 1 GM VIAL*** 1.25 GM in Sodium Chloride 0.9% 250 ML 250 ML IV SCH (21:46)
[2017-01-04] MEDS: NovoLOG Insulin SQ PRN (21:47)
[2017-01-05] MEDS: DILAUDID 2 MG INJECTION IV PRN ×6 (01:26→22:41)
[2017-01-05] MEDS: Sodium Chloride 0.9% 1000 ML 1,000 ML IV SCH (04:57)
[2017-01-05] MEDS: VANCOCIN 1 GM VIAL*** 1.25 GM in Sodium Chloride 0.9% 250 ML 250 ML IV SCH ×3 (05:04→22:42)
[2017-01-05 05:41] LABS: BASOPHIL % 0.2 % (0.0-0.4); Eosinophil % 2.3 % (0.00-5.0); Granulocytes % 79.5 % (36.0-66.0); Lymphocytes % 11.1 % (24.0-44.0); Mean Cell Volume 86.4 fl (78-100); Mean Corpuscular Hemoglobin 27.3 pg (26-32); Monocytes % 6.9 % (0.0-12.0); Platelet Count 263 K/mm3 (150-450); White Blood Count 12.6 K/mm3 (4.0-10.5)
[2017-01-05 05:58] LABS: ANION GAP 11.4 MEQ/L (5-15); BLOOD UREA NITROGEN 9 mg/dL (9-20); CHLORIDE 101 mEq/L (98-107); Carbon Dioxide 28.8 mEq/L (21-32); Glucose 259 MG/DL (70-110); SODIUM 137 mEq/L (136-145)
[2017-01-05] MEDS: NovoLOG Insulin SQ SCH ×3 (08:17→17:07)
[2017-01-05] MEDS: NovoLOG Insulin SQ PRN ×2 (08:18→22:42)
[2017-01-05] MEDS: ENOXAPARIN SODIUM SQ SCH (08:20)
[2017-01-05] MEDS: ECOTRIN 81 MG PO SCH (08:20)
[2017-01-05] MEDS: Maxzide-25MG Tablet PO SCH (08:20)
[2017-01-05] MEDS: Lopressor 50 MG PO SCH ×2 (08:21→22:41)
[2017-01-05] MEDS: Zestril 5 MG PO SCH (08:21)
[2017-01-05] MEDS: NORVASC 5 MG PO SCH (08:21)
[2017-01-05] MEDS: ZOLOFT 50 MG TABLET PO SCH (08:21)
[2017-01-05] MEDS: Invanz 1 GM*** 1 G in Sodium Chloride 100ML MINI-BAG PLUS 100 ML IV SCH (08:26)
[2017-01-05] MEDS ORDERED: TYLENOL EXTRA STRENGTH 500 MG PO PRN (09:08)
--- NOTE | 2017-01-05 09:08 | PCM.NOTE ---
Date and Time: 01/05/17 09 Subjective Assessment: Patient reports continued pain in his left foot but states the pain medications help some. He has had some shortness of breath. I do not see any outpatient notes from the floor installation mechanic yet. - Review of Systems Constitutional: Fatigue Eyes: No Symptoms Ears, Nose, & Throat: No Symptoms Respiratory: Short Of Breath Cardiac: No Symptoms Abdominal/Gastrointestinal: No Symptoms Genitourinary Symptoms: No Symptoms Musculoskeletal: Other (left foot pain) Skin: Other (drainage from left foot wound) Objective Exam General Appearance: mild distress, alert, other ( at bedside) Skin Exam: normal color, warm, other (Left foot with open wound about 5 x 6 cm with serosangenous drainage and packing in place) Respiratory Exam: normal breath sounds, lungs clear, No crackles/rales, No rhonchi, No wheezing Cardiovascular Exam: regular rate/rhythm, normal heart sounds, No murmur, No friction rub, No gallop Gastrointestinal/Abdomen Exam: soft, normal bowel sounds, No tenderness, No distention, No mass Extremity Exam: other (no c/c/e) OBJECTIVE DATA Vital Signs: Vital Signs - 24 hr Temp Pulse Resp BP Pulse Ox 01/05/17 07:25 98.4 F 96 H 23 121/79 92 L 01/05/17 04:00 98.1 F 92 H 21 108/68 95 01/05/17 00:00 97.8 F 78 26 H 109/74 93 L 01/04/17 19:34 98.0 F 103 H 21 108/72 92 L 01/04/17 15:01 97.9 F 104 H 18 104/67 104 H 01/04/17 13:25 98.2 F 85 18 94 L 01/04/17 11:49 98.2 F 85 18 112/74 94 L Oxygen-Last 24 hours O2 Percentage 2 Liters = 28% O2 Percentage 2 Liters = 28% O2 Percentage 2 Liters = 28% O2 Percentage 2 Liters = 28% Pain Assessment - Last Documented Pain Intensity 8 Pain Scale Used 0-10 Pain Scale Intake and Output: Intake & Output 01/03/17 01/04/17 01/05/17 01/06/17 06:59 06:59 06:59 06:59 Intake Total 4494 5330 9301 Output Total 550 Balance 3778 9300 7377 Weight 95.935 kg 95.935 kg Lab Results: Accuchecks Date 01/04/17 Date 01/04/17 Time 16:30 Time 11:30 Accucheck Value: 226 Accucheck Value: 136 Accucheck Value: 156 Lab Results-Last 24 Hours 01/04/17 01/04/17 01/04/17 Range/Units 09:28 09:28 09:28 WBC 14.7 H (4.0-10.5) K/mm3 RBC 4.24 (4.1-5.6) M/mm3 Hgb 11.7 L (12.5-18.0) gm/dl Hct 36.5 L (42-50) % MCV 86.1 (78-100) fl MCH 27.5 (26-32) pg MCHC 32.1 (32-36) g/dl RDW 12.8 (11.5-14.0) % Plt Count 252 (150-450) K/mm3 MPV 11.7 H (6-9.5) fl Gran % 83.1 H (36.0-66.0) % Lymphocytes % 9.1 L (24.0-44.0) % Monocytes % 6.9 (0.0-12.0) % Eosinophils % 0.8 (0.00-5.0) % Basophils % 0.1 (0.0-0.4) % Basophils # 0.02 (0-0.4) Sodium 138 (136-145) mEq/L Potassium 4.0 (3.5-5.1) mEq/L Chloride 102 (98-107) mEq/L Carbon Dioxide 29.9 (21-32) mEq/L Anion Gap 9.7 (5-15) MEQ/L BUN 8 L (9-20) mg/dL Creatinine 0.66 (0.55-1.30) mg/dl Estimated GFR > 60 ML/MIN Glucose 175 H (70-110) MG/DL Calcium 8.0 L (8.5-10.1) mg/dL Total Bilirubin 0.3 (0.2-1.0) mg/dL AST 13 L (15-37) U/L ALT 19 (12-78) U/L Alkaline Phosphatase 234 H (46-116) U/L Serum Total Protein 6.0 L (6.4-8.2) gm/dL Albumin 2.2 L (3.4-5.0) g/dL TSH 3rd Generation (0.358-3.740) mIU/L Vancomycin Trough 7.7 L (10-20) UG/ML 01/04/17 01/05/17 01/05/17 Range/Units 12:51 05:30 05:30 WBC 12.6 H (4.0-10.5) K/mm3 RBC 4.50 (4.1-5.6) M/mm3 Hgb 12.3 L (12.5-18.0) gm/dl Hct 38.9 L (42-50) % MCV 86.4 (78-100) fl MCH 27.3 (26-32) pg MCHC 31.6 L (32-36) g/dl RDW 13.0 (11.5-14.0) % Plt Count 263 (150-450) K/mm3 MPV 11.0 H (6-9.5) fl Gran % 79.5 H (36.0-66.0) % Lymphocytes % 11.1 L (24.0-44.0) % Monocytes % 6.9 (0.0-12.0) % Eosinophils % 2.3 (0.00-5.0) % Basophils % 0.2 (0.0-0.4) % Basophils # 0.02 (0-0.4) Sodium 137 (136-145) mEq/L Potassium 4.0 (3.5-5.1) mEq/L Chloride 101 (98-107) mEq/L Carbon Dioxide 28.8 (21-32) mEq/L Anion Gap 11.4 (5-15) MEQ/L BUN 9 (9-20) mg/dL Creatinine 0.70 (0.55-1.30) mg/dl Estimated GFR > 60 ML/MIN Glucose 259 H (70-110) MG/DL Calcium 8.4 L (8.5-10.1) mg/dL Total Bilirubin (0.2-1.0) mg/dL AST (15-37) U/L ALT (12-78) U/L Alkaline Phosphatase (46-116) U/L Serum Total Protein (6.4-8.2) gm/dL Albumin (3.4-5.0) g/dL TSH 3rd Generation 2.547 (0.358-3.740) mIU/L Vancomycin Trough (10-20) UG/ML Radiology Exams: Radiology Procedures Category Date Time Status ARTERIAL BILAT LOWER EXTREMITY [US] Stat Exams 01/04/17 10:36 Completed BONE THREE PHASE [NUCMED] Routine Exams 01/05/17 09:03 Ordered Multi-Disciplinary Progress Notes: Multi-Disciplinary Progress Notes 01/04/17 10:37 Physical Therapy Note by Maru Rapp PALLIATIVE CARE TO LEFT HEEL WITH HIBICLENS /STERILE WATER SOAK; SITE OF PUNCTURE WOUND THAT HAS EVOLVED SINCE ONSET WEDNESDAY INTO AN EXTREMELY PAINFUL DISCOLORED LATERAL HEEL WITH LATERAL 5TH RAY REFERRED PAIN. SURGERY CONSULT = INCISIONAL DEBRIDEMENT THIS PM. PATIENT IS DIABETIC AND A SMOKER. LE ARTERIAL DOPPLERS ORDERED BY SURGEON THIS AM. Initialized on 01/04/17 10:37 - END OF NOTE Assessment/Plan (1) Diabetic infection of left foot Current Visit: Yes Status: Acute Assessment & Plan: Continue current IV antibiotics. Wound culture from when he came in in lab. No culture obtained during surgery. Check bone scan to look for osteomyelitis. Code(s): E11.69 - TYPE 2 DIABETES MELLITUS WITH OTHER SPECIFIED COMPLICATION; L08.9 - LOCAL INFECTION OF THE SKIN AND SUBCUTANEOUS TISSUE, UNSP (2) Uncontrolled diabetes mellitus Current Visit: Yes Status: Acute Qualifiers: Diabetes mellitus type: type 2 Diabetes mellitus complication status: with skin complications Diabetes mellitus complication detail: with other skin complication Assessment & Plan: Better controlled on current insulin regimen. Code(s): E11.65 - TYPE 2 DIABETES MELLITUS WITH HYPERGLYCEMIA (3) History of coronary artery disease Current Visit: Yes Status: Acute Assessment & Plan: Continue aspirin. Trying to obtain records from floor installation mechanic. Will make sure he is on a statin and check FLP. Code(s): Z86.79 - PERSONAL HISTORY OF OTHER DISEASES OF THE CIRCULATORY SYSTEM
[2017-01-05] MEDS: xanAX 0.5 MG PO PRN ×3 (09:15→18:28)
[2017-01-05] MEDS: NORCO 5/325 MG PO PRN ×3 (15:00→21:50)
[2017-01-05] MEDS ORDERED: VITAMIN D2 PO SCH (17:30)
[2017-01-05] MEDS: LIPITOR 40MG PO SCH (22:36)
[2017-01-05] MEDS: Lantus Insulin SQ SCH (22:41)
[2017-01-05] MEDS: NICODERM CQ 14 MG TOP SCH (22:41)
[2017-01-06] MEDS: VANCOCIN 1 GM VIAL*** 1.25 GM in Sodium Chloride 0.9% 250 ML 250 ML IV SCH ×3 (05:08→22:06)
[2017-01-06] MEDS: DILAUDID 2 MG INJECTION IV PRN (05:21)
[2017-01-06 05:45] LABS: BASOPHIL % 0.2 % (0.0-0.4); Eosinophil % 3.5 % (0.00-5.0); Granulocytes % 76.1 % (36.0-66.0); Lymphocytes % 11.3 % (24.0-44.0); Mean Cell Volume 87.7 fl (78-100); Mean Platelet Volume 11.2 fl (6-9.5); Monocytes % 8.9 % (0.0-12.0); Platelet Count 290 K/mm3 (150-450); Red Blood Count 4.38 M/mm3 (4.1-5.6); Red Cell Distribution Width 13.1 % (11.5-14.0)
[2017-01-06 05:46] LABS: Mean Corpuscular Hemoglobin 27.1 pg (26-32)
[2017-01-06 06:03] LABS: ANION GAP 8.2 MEQ/L (5-15); BLOOD UREA NITROGEN 13 mg/dL (9-20); CHLORIDE 101 mEq/L (98-107); Carbon Dioxide 30.9 mEq/L (21-32); Glucose 144 MG/DL (70-110); Potassium 4.4 mEq/L (3.5-5.1); SODIUM 136 mEq/L (136-145)
[2017-01-06] MEDS: ECOTRIN 81 MG PO SCH (08:14)
[2017-01-06] MEDS: Lopressor 50 MG PO SCH ×2 (08:14→22:08)
[2017-01-06] MEDS: Maxzide-25MG Tablet PO SCH (08:14)
[2017-01-06] MEDS: NORVASC 5 MG PO SCH (08:14)
[2017-01-06] MEDS: ZOLOFT 50 MG TABLET PO SCH (08:14)
[2017-01-06] MEDS: Zestril 5 MG PO SCH (08:14)
[2017-01-06] MEDS: ENOXAPARIN SODIUM SQ SCH (08:14)
[2017-01-06] MEDS: NovoLOG Insulin SQ SCH ×3 (08:15→16:50)
[2017-01-06] MEDS: NORCO 5/325 MG PO PRN ×5 (08:19→23:03)
[2017-01-06] MEDS: xanAX 0.5 MG PO PRN ×3 (08:19→16:05)
[2017-01-06] MEDS: Invanz 1 GM*** 1 G in Sodium Chloride 100ML MINI-BAG PLUS 100 ML IV SCH (08:55)
[2017-01-06] MEDS: PLAVIX 75 MG Tablet PO SCH (11:59)
--- NOTE | 2017-01-06 17:17 | PCM.NOTE ---
Date and Time: 01/06/171711 Subjective Assessment: Patient reports he still has pain in his foot but it is better. I was able to talk to his ceramic design engineer today, Dr. Goode, and he would like to see him after he has been discharged this coming week and will plan for an arteriogram ( will need to let patient know about this tomorrow). Patient's appetite is good. Discussed low Vit D with patient. - Review of Systems Constitutional: No Symptoms Eyes: No Symptoms Ears, Nose, & Throat: No Symptoms Respiratory: No Symptoms Cardiac: No Symptoms Abdominal/Gastrointestinal: No Symptoms Genitourinary Symptoms: No Symptoms Musculoskeletal: Other (left foot pain) Objective Exam General Appearance: no apparent distress, obese Neurologic Exam: alert, cooperative Skin Exam: normal color, warm, dry, other (left foot with dressing in place) Respiratory Exam: normal breath sounds, lungs clear, No crackles/rales, No rhonchi, No wheezing Cardiovascular Exam: regular rate/rhythm, normal heart sounds, No friction rub, No gallop, No tachycardia Gastrointestinal/Abdomen Exam: soft, normal bowel sounds, No tenderness, No distention, No mass Extremity Exam: other (left foot with dressing, no c/c/e) OBJECTIVE DATA Vital Signs: Vital Signs - 24 hr Temp Pulse Resp BP Pulse Ox 01/06/17 16:11 98.4 F 122 H 20 104/67 95 01/06/17 10:54 97.9 F 109 H 20 101/71 94 L 01/06/17 07:56 87 20 93 L 01/06/17 07:19 98 F 94 H 20 99/68 92 L 01/06/17 04:00 98.9 F 73 18 114/74 91 L 01/05/17 23:26 99.0 F 81 20 101/66 97 01/05/17 22:12 72 20 88 L 01/05/17 19:30 97.1 F 86 19 102/57 89 L Pain Assessment - Last Documented Pain Intensity 6 Pain Scale Used 0-10 Pain Scale Intake and Output: Intake & Output 01/04/17 01/05/17 01/06/17 01/07/17 06:59 06:59 06:59 06:59 Intake Total 4190 2888 3631 960 Output Total 550 Balance 3640 2888 3631 960 Weight 95.935 kg Lab Results: Accuchecks Date 01/06/17 Date 01/06/17 Date 01/06/17 Date 01/06/17 Time 16:30 Time 11:30 Time 09:24 Time 07:30 Accucheck Value: 92 Accucheck Value: 111 Accucheck Value: 160 Accucheck Value: 138 Accucheck Value: 168 Lab Results-Last 24 Hours 01/06/17 01/06/17 01/06/17 Range/Units 05:15 05:15 05:15 WBC 11.0 H (4.0-10.5) K/mm3 RBC 4.38 (4.1-5.6) M/mm3 Hgb 11.9 L (12.5-18.0) gm/dl Hct 38.4 L (42-50) % MCV 87.7 (78-100) fl MCH 27.1 (26-32) pg MCHC 31.0 L (32-36) g/dl RDW 13.1 (11.5-14.0) % Plt Count 290 (150-450) K/mm3 MPV 11.2 H (6-9.5) fl Gran % 76.1 H (36.0-66.0) % Lymphocytes % 11.3 L (24.0-44.0) % Monocytes % 8.9 (0.0-12.0) % Eosinophils % 3.5 (0.00-5.0) % Basophils % 0.2 (0.0-0.4) % Basophils # 0.02 (0-0.4) Sodium 136 (136-145) mEq/L Potassium 4.4 (3.5-5.1) mEq/L Chloride 101 (98-107) mEq/L Carbon Dioxide 30.9 (21-32) mEq/L Anion Gap 8.2 (5-15) MEQ/L BUN 13 (9-20) mg/dL Creatinine 0.70 (0.55-1.30) mg/dl Estimated GFR > 60 ML/MIN Glucose 144 H (70-110) MG/DL Calcium 8.5 (8.5-10.1) mg/dL Triglycerides 100 (30-200) mg/dL Cholesterol 106 (100-200) mg/dL LDL Cholesterol 70 (5-99) mg/dL HDL Cholesterol 21 L (35-60) mg/dL Heart Disease Risk Ratio 5.0 Radiology Exams: Radiology Procedures Category Date Time Status BONE THREE PHASE [NUCMED] Routine Exams 01/07/17 Ordered Assessment/Plan (1) Diabetic infection of left foot Current Visit: Yes Status: Acute Assessment & Plan: Awaiting culture results to try to narrow spectum of antibiotics. Bone scan scheduled for tomorrow to rule out osteomyelitis. His WBC count has improved. Code(s): E11.69 - TYPE 2 DIABETES MELLITUS WITH OTHER SPECIFIED COMPLICATION; L08.9 - LOCAL INFECTION OF THE SKIN AND SUBCUTANEOUS TISSUE, UNSP (2) Uncontrolled diabetes mellitus Current Visit: Yes Status: Acute Qualifiers: Diabetes mellitus type: type 2 Diabetes mellitus complication status: with skin complications Diabetes mellitus complication detail: with other skin complication Assessment & Plan: His blood glucoses have been better controlled the last 24 hours when I saw him this AM. Continue with current doses of insulin. Code(s): E11.65 - TYPE 2 DIABETES MELLITUS WITH HYPERGLYCEMIA (3) History of coronary artery disease Current Visit: Yes Status: Acute Assessment & Plan: Dr. Goode's outpatient note found in chart and reviewed. Will add plavix to aspirin. Code(s): Z86.79 - PERSONAL HISTORY OF OTHER DISEASES OF THE CIRCULATORY SYSTEM (4) PAD (peripheral artery disease) Current Visit: Yes Status: Acute Assessment & Plan: Plan to see his ceramic design engineer as an outpatient. Code(s): I73.9 - PERIPHERAL VASCULAR DISEASE, UNSPECIFIED (5) Vitamin D deficiency Current Visit: Yes Status: Acute Assessment & Plan: This may account for his elevated alk phos. Start Vit D 50,000 units po weekly. Code(s): E55.9 - VITAMIN D DEFICIENCY, UNSPECIFIED
[2017-01-06] MEDS: NICODERM CQ 14 MG TOP SCH (20:17)
[2017-01-06] MEDS: LIPITOR 40MG PO SCH (22:07)
[2017-01-06] MEDS: NovoLOG Insulin SQ PRN (22:08)
[2017-01-06] MEDS: Lantus Insulin SQ SCH (22:08)
[2017-01-07] MEDS: xanAX 0.5 MG PO PRN ×2 (01:39→05:36)
[2017-01-07] MEDS: DILAUDID 2 MG INJECTION IV PRN ×4 (01:40→23:58)
[2017-01-07] MEDS: VANCOCIN 1 GM VIAL*** 1.25 GM in Sodium Chloride 0.9% 250 ML 250 ML IV SCH ×3 (05:35→21:31)
[2017-01-07 05:49] LABS: BASOPHIL % 0.4 % (0.0-0.4); Eosinophil % 3.1 % (0.00-5.0); Granulocytes % 72.1 % (36.0-66.0); Lymphocytes % 16.5 % (24.0-44.0); Mean Cell Volume 86.1 fl (78-100); Mean Platelet Volume 10.8 fl (6-9.5); Monocytes % 7.9 % (0.0-12.0); Platelet Count 320 K/mm3 (150-450); Red Blood Count 4.33 M/mm3 (4.1-5.6); White Blood Count 10.3 K/mm3 (4.0-10.5)
[2017-01-07 06:13] LABS: Mean Corpuscular Hemoglobin 27.2 pg (26-32)
[2017-01-07 07:04] LABS: BLOOD UREA NITROGEN 12 mg/dL (9-20); CHLORIDE 101 mEq/L (98-107); Carbon Dioxide 31.3 mEq/L (21-32); Glucose 208 MG/DL (70-110); Potassium 4.8 mEq/L (3.5-5.1); SODIUM 137 mEq/L (136-145)
[2017-01-07] MEDS: NORCO 5/325 MG PO PRN ×4 (07:54→22:45)
[2017-01-07] MEDS: NovoLOG Insulin SQ SCH ×3 (08:03→16:45)
[2017-01-07] MEDS: NovoLOG Insulin SQ PRN (08:04)
[2017-01-07] MEDS: Invanz 1 GM*** 1 G in Sodium Chloride 100ML MINI-BAG PLUS 100 ML IV SCH (09:28)
[2017-01-07] MEDS: ZOLOFT 50 MG TABLET PO SCH (10:03)
[2017-01-07] MEDS: NORVASC 5 MG PO SCH (10:03)
[2017-01-07] MEDS: ECOTRIN 81 MG PO SCH (10:03)
[2017-01-07] MEDS: Maxzide-25MG Tablet PO SCH (10:03)
[2017-01-07] MEDS: Lopressor 50 MG PO SCH ×2 (10:03→21:20)
[2017-01-07] MEDS: Zestril 5 MG PO SCH (10:03)
[2017-01-07] MEDS: PLAVIX 75 MG Tablet PO SCH (10:03)
[2017-01-07] MEDS: ENOXAPARIN SODIUM SQ SCH (10:03)
--- NOTE | 2017-01-07 10:04 | PCM.NOTE ---
Date and Time: 01/07/17957 Subjective Assessment: He continues to have pain in his left foot. His appetite has been good. He had a bone scan today but no results yet. His cultures came back with susceptibility to levaquin, linezolid and vancomycin. PT continues to follow as well as general surgeons. - Review of Systems Constitutional: No Symptoms Eyes: No Symptoms Ears, Nose, & Throat: No Symptoms Respiratory: No Symptoms Cardiac: No Symptoms Abdominal/Gastrointestinal: No Symptoms Genitourinary Symptoms: No Symptoms Musculoskeletal: Other (left foot pain) Skin: Cellulitis Objective Exam General Appearance: no apparent distress, other (falls asleep easily, nurse notes he just had hydrocodone for pain.) Neurologic Exam: alert, cooperative, normal mood/affect Skin Exam: normal color, warm, dry, other (open area on bottom of left foot about 4 x 6 cm with dressing adherent to it after it was unwrapped.) Respiratory Exam: normal breath sounds, lungs clear, No crackles/rales, No rhonchi, No wheezing Cardiovascular Exam: regular rate/rhythm, normal heart sounds, No murmur, No friction rub, No gallop Gastrointestinal/Abdomen Exam: soft, normal bowel sounds, No tenderness, No distention, No mass Extremity Exam: other (no c/c/e) OBJECTIVE DATA Vital Signs: Vital Signs - 24 hr Temp Pulse Resp BP Pulse Ox 01/07/17 07:48 98.3 F 87 22 115/74 90 L 01/07/17 04:00 98.6 F 123 H 22 114/69 93 L 01/06/17 23:35 98.5 F 86 20 113/75 94 L 01/06/17 20:00 98.7 F 104 H 22 128/63 94 L 01/06/17 19:47 104 H 22 94 L 01/06/17 16:11 98.4 F 122 H 20 104/67 95 01/06/17 10:54 97.9 F 109 H 20 101/71 94 L Pain Assessment - Last Documented Pain Intensity 9 Pain Scale Used [facility] Intake and Output: Intake & Output 01/05/17 01/06/17 01/07/17 01/08/17 06:59 06:59 06:59 06:59 Intake Total 5202 3631 4383 Balance 4787 3631 4375 Weight 95.935 kg Lab Results: Accuchecks Date 01/07/17 Date 01/06/17 Date 01/06/17 Time 07:30 Time 16:30 Time 11:30 Accucheck Value: 217 Accucheck Value: 161 Accucheck Value: 92 Accucheck Value: 111 Lab Results-Last 24 Hours 01/07/17 01/07/17 01/07/17 Range/Units 05:30 05:30 05:30 WBC 10.3 (4.0-10.5) K/mm3 RBC 4.33 (4.1-5.6) M/mm3 Hgb 11.8 L (12.5-18.0) gm/dl Hct 37.3 L (42-50) % MCV 86.1 (78-100) fl MCH 27.2 (26-32) pg MCHC 31.6 L (32-36) g/dl RDW 13.0 (11.5-14.0) % Plt Count 320 (150-450) K/mm3 MPV 10.8 H (6-9.5) fl Gran % 72.1 H (36.0-66.0) % Lymphocytes % 16.5 L (24.0-44.0) % Monocytes % 7.9 (0.0-12.0) % Eosinophils % 3.1 (0.00-5.0) % Basophils % 0.4 (0.0-0.4) % Basophils # 0.04 (0-0.4) Sodium 137 (136-145) mEq/L Potassium 4.8 (3.5-5.1) mEq/L Chloride 101 (98-107) mEq/L Carbon Dioxide 31.3 (21-32) mEq/L Anion Gap 9.0 (5-15) MEQ/L BUN 12 (9-20) mg/dL Creatinine 0.59 (0.55-1.30) mg/dl Estimated GFR > 60 ML/MIN Glucose 208 H (70-110) MG/DL Calcium 8.4 L (8.5-10.1) mg/dL Vancomycin Trough 18.6 (10-20) UG/ML Radiology Exams: Radiology Procedures Category Date Time Status BONE THREE PHASE [NUCMED] Routine Exams 01/07/17 Ordered Assessment/Plan (1) Diabetic infection of left foot Current Visit: Yes Status: Acute Assessment & Plan: Continue current antibiotic therapy and await bone scan results. Code(s): E11.69 - TYPE 2 DIABETES MELLITUS WITH OTHER SPECIFIED COMPLICATION; L08.9 - LOCAL INFECTION OF THE SKIN AND SUBCUTANEOUS TISSUE, UNSP (2) Uncontrolled diabetes mellitus Current Visit: Yes Status: Acute Qualifiers: Diabetes mellitus type: type 2 Diabetes mellitus complication status: with skin complications Diabetes mellitus complication detail: with other skin complication Assessment & Plan: Better controlled here in the hospital. Code(s): E11.65 - TYPE 2 DIABETES MELLITUS WITH HYPERGLYCEMIA (3) History of coronary artery disease Current Visit: Yes Status: Acute Assessment & Plan: Continue plavix and aspirin. Code(s): Z86.79 - PERSONAL HISTORY OF OTHER DISEASES OF THE CIRCULATORY SYSTEM (4) PAD (peripheral artery disease) Current Visit: Yes Status: Acute Assessment & Plan: Appointment made with his engineering project manager per engineering project manager request for early this coming week. Code(s): I73.9 - PERIPHERAL VASCULAR DISEASE, UNSPECIFIED (5) Vitamin D deficiency Current Visit: Yes Status: Acute Assessment & Plan: Continue weekly Vit D. Code(s): E55.9 - VITAMIN D DEFICIENCY, UNSPECIFIED
--- NOTE | 2017-01-07 13:00 | XRAY ---
Indication: Left foot cellulitis. Heel ulcer for 2 weeks. History of type 2 diabetes and peripheral vascular disease. Comparison: None Patient received 27.5 mCi technetium 99 MDP. Immediate flow images of both feet obtained in the anterior and posterior planes. Blood pool images obtained in the anterior and plantar planes. 4.5 hour delayed images obtained in the anterior, posterior, and plantar planes of both feet as well as left foot lateral plane. Flow images demonstrate increased left foot radiopharmaceutical activity. Blood pool images demonstrate continued generalized left mid to hind foot radiopharmaceutical activity. Delayed images demonstrates focal increased radiopharmaceutical activity to the posterior plantar calcaneus. Impression: Nuclear medicine three-phase bone scan positive for left foot cellulitis with small focus of calcaneal osteomyelitis.
[2017-01-07] MEDS: Sodium Chloride 0.9% 1000 ML 1,000 ML IV SCH ×3 (14:06→15:54)
[2017-01-07] MEDS: NICODERM CQ 14 MG TOP SCH (19:53)
[2017-01-07] MEDS: LIPITOR 40MG PO SCH (21:20)
[2017-01-07] MEDS: Lantus Insulin SQ SCH (21:20)
[2017-01-07] MEDS ORDERED: Vancomycin 1GM/ Ns 250ML*** 250 ML IV ONE (21:24)
[2017-01-08] MEDS: VANCOCIN 1 GM VIAL*** 1.25 GM in Sodium Chloride 0.9% 250 ML 250 ML IV SCH (05:41)
[2017-01-08] MEDS: NORCO 5/325 MG PO PRN ×2 (05:45→09:55)
[2017-01-08 05:51] LABS: BASOPHIL % 0.3 % (0.0-0.4); Granulocytes % 68.1 % (36.0-66.0); Mean Cell Volume 87.8 fl (78-100); Mean Platelet Volume 10.3 fl (6-9.5); Monocytes % 9.6 % (0.0-12.0); Platelet Count 346 K/mm3 (150-450); Red Blood Count 4.27 M/mm3 (4.1-5.6); Red Cell Distribution Width 13.1 % (11.5-14.0); White Blood Count 9.5 K/mm3 (4.0-10.5)
[2017-01-08 06:00] LABS: Mean Corpuscular Hemoglobin 27.1 pg (26-32)
[2017-01-08 06:28] LABS: ANION GAP 7.1 MEQ/L (5-15); BLOOD UREA NITROGEN 10 mg/dL (9-20); CHLORIDE 102 mEq/L (98-107); Carbon Dioxide 33.3 mEq/L (21-32); Glucose 148 MG/DL (70-110); Potassium 4.3 mEq/L (3.5-5.1); SODIUM 138 mEq/L (136-145)
[2017-01-08] MEDS: DILAUDID 2 MG INJECTION IV PRN (07:50)
[2017-01-08] MEDS: NovoLOG Insulin SQ SCH ×2 (07:51→12:03)
--- NOTE | 2017-01-08 09:14 | PCM.DCORD ---
- Discharge Discharge Date: 01/08/17 Disposition: Home, Self-Care Condition: Fair Prescriptions: New Hydrocodone/Acetaminophen [Hydrocodon-Acetaminophen 5-325] 1 tablet PO Q6H PRN #40 tablet PRN Reason: Pain Levofloxacin 750 mg PO DAILY #30 tablet Atorvastatin Calcium [Lipitor] 80 mg PO QHS #30 tablet Insulin Aspart [NovoLOG Insulin] 10 unit SQ TIDWM #3 Clopidogrel Bisulfate 75 mg [PLAVIX 75 MG Tablet] 75 mg PO DAILY #30 tablet Ergocalciferol (Vitamin D2) [Vitamin D2] 50,000 unit PO Q7D #4 capsule Continue Alprazolam [Xanax 0.5 mg] 1 - 2 tab PO Q4HPRN PRN PRN Reason: Anxiety Sumatriptan Succinate [Imitrex] 25 mg PO Q2H/PRN PRN PRN Reason: Headache Sertraline HCl 50 mg [Zoloft 50 mg Tablet] 50 mg PO DAILY Metformin HCl 500 mg [Glucophage 500 MG] 500 mg PO BID #60 tablet Insulin Glargine [Lantus Insulin] 50 units SQ HS #3 vial Metoprolol Tartrate 50 mg [Lopressor 50 MG] 50 mg PO BID #60 tablet Lisinopril 5 mg [Zestril 5 MG] 5 mg PO DAILY #30 tablet Discontinued Triamterene/Hydrochlorothiazid [Triamterene-Hctz 37.5-25 mg Cp] 0.5 tab PO DAILY Amlodipine Besylate 5 mg [Norvasc 5 mg] 5 mg PO DAILY Additional Instructions: Check your blood glucoses before meals and before bedtime and keep a log of these. Do not bear weight on your left foot unless instructed to do so by the surgeon. Keep your pain medication in a safe place and do not drive while taking this medication. Follow up with: BILLY FERRELL [COURTESY STAFF] - 1 Week DONOVAN PERKINS [COURTESY STAFF] - 01/12/17 9:15 am VINNIE RODRIGUES [Primary Care Provider] - JAYLYN CALVERT [NON-STAFF Y W/O PRIVILEGES] - 1 Week VERA SLOAN [PODIATRY STAFF] - 1 Week
[2017-01-08] MEDS: Lopressor 50 MG PO SCH (09:33)
[2017-01-08] MEDS: Zestril 5 MG PO SCH (09:33)
[2017-01-08] MEDS: ENOXAPARIN SODIUM SQ SCH (09:33)
[2017-01-08] MEDS: ECOTRIN 81 MG PO SCH (09:33)
[2017-01-08] MEDS: ZOLOFT 50 MG TABLET PO SCH (09:33)
[2017-01-08] MEDS: PLAVIX 75 MG Tablet PO SCH (09:33)
[2017-01-08] MEDS ORDERED: Levofloxacin 250MG Tablet PO SCH (10:00)
[2017-01-08] MEDS ORDERED: Levofloxacin 500 MG Tablet PO SCH (10:00)
[2017-01-08 11:57] VITALS: BP 105/73; PULSE 80; O2SAT 92
== END 2017-01-08 15:00 | disposition home health service (06) | DRG 941 ==
LOC: ED 12:09 → MED SURG 14:25
PROVIDERS: ADMIT Family Medicine; ATTEND Internal Medicine
PROC: 0JBR0ZZ Excision of Left Foot Subcutaneous Tissue and Fascia, Open Approach (ICD-10-PCS; principal; 2017-01-04)
DX: Z79.01 Long term (current) use of anticoagulants (principal); E11.69 Type 2 diabetes mellitus with other specified complication; L08.89 Other specified local infections of the skin and subcutaneous tissue; E11.65 Type 2 diabetes mellitus with hyperglycemia; W22.09XA Striking against other stationary object, initial encounter; I10 Essential (primary) hypertension; I25.10 Atherosclerotic heart disease of native coronary artery without angina pectoris; E55.9 Vitamin D deficiency, unspecified; F32.9 Major depressive disorder, single episode, unspecified; I73.9 Peripheral vascular disease, unspecified; J45.909 Unspecified asthma, uncomplicated; G40.909 Epilepsy, unspecified, not intractable, without status epilepticus; I25.2 Old myocardial infarction; Z79.4 Long term (current) use of insulin; Z86.718 Personal history of other venous thrombosis and embolism; Z79.899 Other long term (current) drug therapy; Z72.0 Tobacco use; Z85.47 Personal history of malignant neoplasm of testis
CPT/HCPCS: 00400; 36000; 36415; 73630; 78315; 80048; 80053; 80061; 80202; 80307; 81002; 82306; 82805; 82962; 83036; 83605; 83721; 84443; 85025; 85652; 87040; 87070; 87077; 87186; 88304; 93925; 94660; 94760; 96360; 96361; 96365; 96367; 96374; 96375; 99285; A6457; A9503; J1170; J1200; J1335; J1650; J2405; J3370; A9270-GY

== ENCOUNTER 2017-02-02 21:15 | Emergency (ER) | payer MEDICARE ==
[2017-02-02] MEDS ORDERED: Sodium Chloride 0.9% 1000 ML 1,000 ML IV STA ×2 (22:09→22:42)
[2017-02-02] MEDS ORDERED: MORPHINE SULFATE 4 MG INJ IV ONE ×2 (22:10→22:57)
[2017-02-02] MEDS ORDERED: Phenergan 25 MG INJ IV ONE (22:11)
--- NOTE | 2017-02-02 22:18 | ERPHSYRPT ---
- History of Present Illness Time Seen by Provider: 02/02/17 22:11 Source: patient Exam Limitations: no limitations Physician History: Patient with recent stents placed in the left lower leg and surgery of for ulcer on the left foot complaining of throbbing pain in the left leg for 2 days out of his pain medicines according the patient he Recently had his 2 stents placed in his left lower leg he has had surgery secondary to a diabetic foot ulcer. He states that he is out of his pain medicine he's been having throbbing pain in his legs for 2 days. He states he contacted his physician in [place] and they told him that he needed to go the emergency room for continuing pain medications. Patient has not had a fever no vomiting Patient does have a history of diabetes. Past medical history includes high blood pressure, seizures, coronary artery disease, myocardial infarction, diabetes, COPD, sleep apnea Past surgical history includes cardiac catheter cardiac stents stents in his left lower extremity, and surgery on a diabetic foot heel ulcer Timing/Duration: day(s) (2 days) Severity: moderate Modifying Factors: Improves With: nothing Associated Symptoms: other, No nausea, No vomiting, No abdominal pain, No shortness of breath, No heartburn, No diaphoresis, No cough, No chills, No chest pain, No fever, No headaches, No loss of appetite, No malaise, No rash, No syncope, No seizure, No weakness Allergies/Adverse Reactions: bupropion HCl [From Wellbutrin] Allergy (Verified 02/02/17 22:17) "makes my skin crawl" tetracycline Allergy (Verified 02/02/17 22:17) hives Home Medications: Alprazolam [Xanax 0.5 mg] 1 - 2 tab PO Q4HPRN PRN 01/02/17 [History] Sertraline HCl 50 mg [Zoloft 50 mg Tablet] 50 mg PO DAILY 01/02/17 [History] Sumatriptan Succinate [Imitrex] 25 mg PO Q2H/PRN PRN 01/02/17 [History] Hx Tetanus, Diphtheria Vaccination/Date Given: Yes (2015) Hx Influenza Vaccination/Date Given: No Hx Pneumococcal Vaccination/Date Given: No - Review of Systems Constitutional: No Fever, No Chills Eyes: No Symptoms Ears, Nose, & Throat: No Symptoms Respiratory: No Cough, No Dyspnea Cardiac: No Chest Pain, No Edema, No Syncope Abdominal/Gastrointestinal: No Abdominal Pain, No Nausea, No Vomiting, No Diarrhea Genitourinary Symptoms: No Dysuria Musculoskeletal: Other (left leg pain for 2 days) Skin: No Rash Neurological: No Dizziness, No Focal Weakness, No Sensory Changes Psychological: No Symptoms Endocrine: No Symptoms All Other Systems: Reviewed and Negative - Past Medical History Pertinent Past Medical History: Yes Neurological History: Seizures ENT History: No Pertinent History Cardiac History: Coronary Artery Disease, Hypertension, Myocardial Infarction ( [place]) Respiratory History: COPD Endocrine Medical History: Diabetes Type II Musculoskeletal History: Arthritis, Other GI Medical History: No Pertinent History History: No Pertinent History Psycho-Social History: Depression, Other Male Reproductive Disorders: No Pertinent History Other Medical History: [place] x 2 smoking 1.5PPD 30 + years, Sleep apnea pt states he has a CPAP at home the he wears occationally when it is working. - Past Surgical History Past Surgical History: Yes Neuro Surgical History: No Pertinent History Cardiac: Cardiac Catheterization, Cardiac Stent Respiratory: No Pertinent History Gastrointestinal: No Pertinent History Genitourinary: Other Musculoskeletal: Orthopedic Surgery Male Surgical History: Testicular Surgery Other Surgical History: Three heart stents, DVT - Social History Smoking Status: Current every day smoker How long have you smoked: 30 years Exposure to second hand smoke: Yes Drug Use: marijuana Patient Lives Alone: No - Nursing Vital Signs Nursing Vital Signs: Initial Vital Signs Pulse Rate 110 Respiratory Rate 20 Blood Pressure [] 132/88 Pain Intensity 8 - Physical Exam General Appearance: moderate distress Eye Exam: PERRL/EOMI, eyes nml inspection Ears, Nose, Throat Exam: normal ENT inspection, TMs normal, pharynx normal, moist mucous membranes Neck Exam: normal inspection, non-tender, supple, full range of motion Respiratory Exam: normal breath sounds, lungs clear, No respiratory distress Cardiovascular Exam: regular rate/rhythm, normal heart sounds, normal peripheral pulses Gastrointestinal/Abdomen Exam: soft, normal bowel sounds, No tenderness, No mass Back Exam: normal inspection, normal range of motion, No CVA tenderness, No vertebral tenderness Extremity Exam: other (dressing in place left lower extremty full range of motion all extremities good capillary refill left toes) Neurologic Exam: alert, oriented x 3, cooperative, normal mood/affect, nml cerebellar function, nml station & gait, sensation nml, No motor deficits Skin Exam: normal color, warm, dry, No rash Lymphatic Exam: No adenopathy - Course Nursing assessment & vital signs reviewed: Yes - Radiology Ultrasound Exam Venous Lower Extremity Ultrasound: Other (venous Doppler left lower extremity per mechanical technologist, no DVT) Ordered Tests: Active Orders 24 hr Category Date Time Status ACCUCHECK [Accucheck] STAT Care 02/02/17 22:09 Active Accucheck STAT Care 02/03/17 00:17 Active IV Insertion STAT Care 02/02/17 22:09 Active Wound Care STAT Care 02/03/17 02:17 Active VENOUS UNILAT/LIMITED EXTREMIT [US] Stat Exams 02/03/17 00:50 Taken CBC W DIFF Stat Lab 02/02/17 22:30 Completed CMP Stat Lab 02/02/17 22:30 Completed D-DIMER QUANTITATION Stat Lab 02/03/17 00:00 Completed VENOUS BLOOD GAS Urgent Lab 02/02/17 22:30 Completed Respiratory Nebulizer STAT RT 02/03/17 02:04 Active Medication Summary Discontinued Medications Generic Name Dose Route Start Last Admin Trade Name Marcosq PRN Reason Stop Dose Admin Hydrocodone Bitart/Acetaminophen 2 tab 02/03/17 02:14 02/03/17 03:02 [place] 5/325 Mg PO 02/03/17 02:15 2 tab SENT HOME W/ PATIENT ONE Administration Hydrocodone Bitart/Acetaminophen Confirm 02/03/17 02:51 [place] 5/325 Mg Administered 02/03/17 02:52 Dose 2 tab .ROUTE .STK-MED ONE Albuterol Sulfate 2.5 mg 02/03/17 02:04 02/03/17 02:11 Proventil 2.5 Mg/3 Ml Neb IH 02/03/17 02:05 2.5 mg STAT ONE Administration Albuterol Sulfate Confirm 02/03/17 02:11 Proventil 2.5 Mg/3 Ml Neb Administered 02/03/17 02:12 Dose 2.5 mg IH .STK-MED ONE Sodium Chloride 1,000 mls @ 999 mls/hr 02/02/17 22:09 02/02/17 22:34 Sodium Chloride 0.9% 1000 Ml IV 02/02/17 23:09 999 mls/hr .Q1H1M STA Administration Sodium Chloride Confirm 02/02/17 22:33 Sodium Chloride 0.9% 1000 Ml Administered 02/02/17 22:34 Dose 1,000 mls @ ud .ROUTE .STK-MED ONE Sodium Chloride 1,000 mls @ 999 mls/hr 02/02/17 22:42 02/02/17 23:27 Sodium Chloride 0.9% 1000 Ml IV 02/02/17 23:42 999 mls/hr .Q1H1M STA Administration Sodium Chloride Confirm 02/02/17 23:25 Sodium Chloride 0.9% 1000 Ml Administered 02/02/17 23:26 Dose 1,000 mls @ ud .ROUTE .STK-MED ONE Insulin Aspart 8 unit 02/03/17 00:34 02/03/17 00:41 Novolog Insulin SQ 02/03/17 00:35 8 unit STAT ONE Administration Insulin Aspart Confirm 02/03/17 00:39 Novolog Insulin Administered 02/03/17 00:40 Dose 8 unit .ROUTE .STK-MED ONE Morphine Sulfate 4 mg 02/02/17 22:10 02/02/17 22:35 Morphine Sulfate 4 Mg Inj IV 02/02/17 22:11 4 mg STAT ONE Administration Morphine Sulfate Confirm 02/02/17 22:33 Morphine Sulfate 4 Mg Inj Administered 02/02/17 22:34 Dose 4 mg .ROUTE .STK-MED ONE Morphine Sulfate 4 mg 02/02/17 22:57 02/02/17 23:26 Morphine Sulfate 4 Mg Inj IV 02/02/17 22:58 4 mg STAT ONE Administration Morphine Sulfate Confirm 02/02/17 23:25 Morphine Sulfate 4 Mg Inj Administered 02/02/17 23:26 Dose 4 mg .ROUTE .STK-MED ONE Promethazine HCl 12.5 mg 02/02/17 22:11 02/02/17 22:34 Phenergan 25 Mg Inj IV 02/02/17 22:12 12.5 mg STAT ONE Administration Promethazine HCl Confirm 02/02/17 22:32 Phenergan 25 Mg Inj Administered 02/02/17 22:33 Dose 25 mg .ROUTE .STK-MED ONE Lab/Rad Data: Laboratory Result Diagrams 02/02/17 22:30 02/02/17 22:30 Laboratory Results 02/03/17 02/02/17 02/02/17 Range/Units 00:00 22:30 22:30 WBC (4.0-10.5) K/mm3 RBC (4.1-5.6) M/mm3 Hgb (12.5-18.0) gm/dl Hct (42-50) % MCV (78-100) fl MCH (26-32) pg MCHC (32-36) g/dl RDW (11.5-14.0) % Plt Count (150-450) K/mm3 MPV (6-9.5) fl Gran % (36.0-66.0) % Lymphocytes % (24.0-44.0) % Monocytes % (0.0-12.0) % Eosinophils % (0.00-5.0) % Basophils % (0.0-0.4) % Basophils # (0-0.4) D-Dimer 1.623 H* (0.00-0.49) mg/L VBG pH 7.34 (7.32-7.42) VBG pCO2 at Pat Temp 59 H (42-55) mm/Hg VBG pO2 at Pat Temp 27 (25-40) mm/Hg VBG HCO3 31.8 H* (22-28) meq/L VBG O2 Sat (Chhaya) 55.4 L (95-100) VBG Base Excess 4.5 H (-2.0-2.0) VBG Hemoglobin 12.3 VBG Carboxyhemoglobin 2.1 (0.0-6.9) % T HGB POC Potassium 4.2 (3.5-5.1) Sodium 132 L (136-145) mEq/L Potassium 4.3 (3.5-5.1) mEq/L Chloride 97 L (98-107) mEq/L Carbon Dioxide 30.9 (21-32) mEq/L Anion Gap 8.3 (5-15) MEQ/L BUN 10 (9-20) mg/dL Creatinine 1.11 (0.55-1.30) mg/dl Estimated GFR > 60 ML/MIN Glucose 548 H* (70-110) MG/DL Calcium 8.5 (8.5-10.1) mg/dL Total Bilirubin 0.3 (0.2-1.0) mg/dL AST 24 (15-37) U/L ALT 18 (12-78) U/L Alkaline Phosphatase 108 (46-116) U/L Serum Total Protein 7.4 (6.4-8.2) gm/dL Albumin 2.7 L (3.4-5.0) g/dL // Range/Units 22:30 WBC 6.8 (4.0-10.5) K/mm3 RBC 4.41 (4.1-5.6) M/mm3 Hgb 11.8 L (12.5-18.0) gm/dl Hct 37.6 L (42-50) % MCV 85.3 (78-100) fl MCH 26.7 (26-32) pg MCHC 31.4 L (32-36) g/dl RDW 13.9 (11.5-14.0) % Plt Count 110 L (150-450) K/mm3 MPV 13.0 H (6-9.5) fl Gran % 68.6 H (36.0-66.0) % Lymphocytes % 18.4 L (24.0-44.0) % Monocytes % 9.3 (0.0-12.0) % Eosinophils % 3.4 (0.00-5.0) % Basophils % 0.3 (0.0-0.4) % Basophils # 0.02 (0-0.4) D-Dimer (0.00-0.49) mg/L VBG pH (7.32-7.42) VBG pCO2 at Pat Temp (42-55) mm/Hg VBG pO2 at Pat Temp (25-40) mm/Hg VBG HCO3 (22-28) meq/L VBG O2 Sat (Chhaya) (95-100) VBG Base Excess (-2.0-2.0) VBG Hemoglobin VBG Carboxyhemoglobin (0.0-6.9) % T HGB POC Potassium (3.5-5.1) Sodium (136-145) mEq/L Potassium (3.5-5.1) mEq/L Chloride (98-107) mEq/L Carbon Dioxide (21-32) mEq/L Anion Gap (5-15) MEQ/L BUN (9-20) mg/dL Creatinine (0.55-1.30) mg/dl Estimated GFR ML/MIN Glucose (70-110) MG/DL Calcium (8.5-10.1) mg/dL Total Bilirubin (0.2-1.0) mg/dL AST (15-37) U/L ALT (12-78) U/L Alkaline Phosphatase (46-116) U/L Serum Total Protein (6.4-8.2) gm/dL Albumin (3.4-5.0) g/dL - Progress Progress: improved Progress Note: 02/02/17 22:17 This is a 46-year-old white male with history of coronary artery disease myocardial infarction diabetes COPD and diabetes. Patient recently had stents placed in his left lower extremity also had surgery on his left heel secondary to diabetic foot ulcer. He states he has run out of his pain medication he has been having throbbing pain in his left lower extremity symptoms for 2 days. He states that he contacted his physician in [facility] for further pain medications and he stated that he was told by his physician that he needed to go to the emergency room to receive more pain medications. Patient is noted to have an elevated blood sugar of over 500 on arrival in the emergency room initially he told the nurse that he wasn't here to get his sugars addressed he just wanted pain medicine. I've explained to the patient that he needs to have his blood sugars addressed that often when the blood sugars are as high as they are they will act as if we are dehydrated and cause increased pain. He has now agreed to IV fluids and labs I will give patient morphine for pain. 02/03/17 00:36 Patient's glucose down the 4:30 after 2 L of normal saline. Patient with palpable pulses dorsal pedal and posterior tibial on left leg 2 over 4 bilaterally good capillary refill left foot and toes sensation intact left toes No erythema noted to his left foot. Pulses are verified with Doppler on the left posterior tibial and dorsal pedal pulse. Will go ahead and obtain a d-dimer on this patient will give patient insulin 10 units of novalog subcutaneously. 02/03/17 00:39 02/03/17 01:05 Patient's d-dimer is elevated. Have ordered venous Doppler left lower extremity. Patient's leg is not hot. He does complain of pain were released touched on his leg in the dorsal foot. Patient was given NovoLog for the patient's elevated blood sugar. He has received IV normal saline as well. 02/03/17 01:53 Venous Doppler left lower extremity negative for DVT. Will have nurse recheck patient's Accu-Chek. Plan home Will write for a small amount of [place]. Patient will need to follow-up with his family doctor or surgeon, or pain accountant controller for continued narcotic analgesia. 02/03/17 02:05 The patient's repeat Accu-Chek is 400 this is one hour after receiving NovoLog 8 units subcutaneously. I've discussed the patient's case with Dr. lion the patient's primary physician. Dr. Lion states that the patient has had negative urine tox screens and negative evidence of opiates in his bloodstream despite being prescribed opiate analgesics and she does not want to give the patient more narcotic analgesics. She did state that she would place the patient in observation if he will come in and cover his sugars. However she will not write for narcotic analgesia. The nurse has told me the patient does state it is time for his albuterol treatment Will give him an albuterol treatment. Will give the patient an option of admission for control of his blood sugars without narcotic analgesia. Dr. Lion states that the patient will not take his insulin at home and does not follow her instructions. 02/03/17 02:08 Patient wants to go home Will discharge patient will give patient 2 [place] tablets to take at home. - Departure Time of Disposition: 01:54 Departure Disposition: Home Clinical Impression: Left leg pain, History of recent vascular stentleft leg, History of diabetic ulcer of foot, Hyperglycemia Condition: Fair Critical Care Time: No Referrals: VINNIE LION [Primary Care Provider] - Instructions: Leg Pain Additional Instructions: Return home. Monitor your blood sugars carefully.insulin as recommended by your family doctor [place] 5/325 #2 one orally every 4-6 hours as needed for pain.#2 Follow-up with your family doctor.
[2017-02-02] MEDS ORDERED: Phenergan 25 MG INJ ONE (22:32)
[2017-02-02] MEDS ORDERED: MORPHINE SULFATE 4 MG INJ ONE ×2 (22:33→23:25)
[2017-02-02] MEDS ORDERED: Sodium Chloride 0.9% 1000 ML 1,000 ML ONE ×2 (22:33→23:25)
[2017-02-02 22:38] LABS: VBG BASE EXCESS 4.5 (-2.0-2.0); VBG CARBOXYHEMOGLOBIN 2.1 % T HGB (0.0-6.9); VBG HCO3- 31.8 meq/L (22-28); VBG HEMOGLOBIN 12.3; VBG O2 SATURATION 55.4 (95-100); VBG POTASSIUM 4.2 (3.5-5.1); VBG pH 7.34 (7.32-7.42)
[2017-02-02 22:41] LABS: BASOPHIL % 0.3 % (0.0-0.4); Eosinophil % 3.4 % (0.00-5.0); Granulocytes % 68.6 % (36.0-66.0); Lymphocytes % 18.4 % (24.0-44.0); Mean Cell Volume 85.3 fl (78-100); Mean Corpuscular Hemoglobin 26.7 pg (26-32); Monocytes % 9.3 % (0.0-12.0); Platelet Count 110 K/mm3 (150-450); Red Blood Count 4.41 M/mm3 (4.1-5.6); Red Cell Distribution Width 13.9 % (11.5-14.0); White Blood Count 6.8 K/mm3 (4.0-10.5)
[2017-02-02 23:07] LABS: ALBUMIN 2.7 g/dL (3.4-5.0); ALKALINE PHOSPHATASE 108 U/L (46-116); ANION GAP 8.3 MEQ/L (5-15); BILIRUBIN,TOTAL 0.3 mg/dL (0.2-1.0); BLOOD UREA NITROGEN 10 mg/dL (9-20); CHLORIDE 97 mEq/L (98-107); Carbon Dioxide 30.9 mEq/L (21-32); Potassium 4.3 mEq/L (3.5-5.1); SGOT/AST 24 U/L (15-37); SGPT/ALT 18 U/L (12-78); SODIUM 132 mEq/L (136-145); Total Protein 7.4 gm/dL (6.4-8.2)
[2017-02-02 23:23] LABS: Glucose 548 MG/DL (70-110)
[2017-02-03] MEDS ORDERED: NovoLOG Insulin SQ ONE (00:34)
[2017-02-03] MEDS ORDERED: NovoLOG Insulin ONE (00:39)
[2017-02-03] MEDS ORDERED: PROVENTIL 2.5 MG/3 ML NEB IH ONE ×2 (02:04→02:11)
[2017-02-03] MEDS ORDERED: NORCO 5/325 MG PO ONE (02:14)
[2017-02-03] MEDS ORDERED: NORCO 5/325 MG ONE (02:51)
[2017-02-03 03:21] VITALS: BP 130/76; PULSE 106; O2SAT 98
--- NOTE | 2017-02-03 10:06 | XRAY ---
Indication: Pain. Two-dimensional sonogram and color Doppler imaging of the major venous vessels of the left leg was performed. Comparison: None No thrombus seen in the examined deep venous vessels of the left leg including greater saphenous vein. Veins demonstrate normal compressibility. Venous waveforms are normal with and without augmentation. Incidental mild lower leg edema. There is also note of mid SFA stent with little color flow seen concerning for occlusion. Impression: 1. Left leg negative for DVT. 2. Incidental mid SFA stent possibly occluded. Comment: Preliminary report was given. Stent findings not reported. I gave telephone report to Dr. Schreiber in the ER at 1005 hrs on February 03, 2017.
== END 2017-02-03 02:35 | disposition home or self-care (01) ==
LOC: ED 21:15
DX: M79.605 Pain in left leg (principal); R73.9 Hyperglycemia, unspecified; E11.621 Type 2 diabetes mellitus with foot ulcer; L97.529 Non-pressure chronic ulcer of other part of left foot with unspecified severity; Z98.890 Other specified postprocedural states; I25.10 Atherosclerotic heart disease of native coronary artery without angina pectoris; I10 Essential (primary) hypertension; I25.2 Old myocardial infarction; J44.9 Chronic obstructive pulmonary disease, unspecified
CPT/HCPCS: 36000; 36415; 80053; 82805; 82962; 85025; 85379; 93971; 94640; 96360; 96361; 96372; 96374; 96375; 96376; 99285; J2270; J2550; A9270-GY

== ENCOUNTER 2017-03-19 21:04 | Emergency (ER) | payer MEDICARE ==
[2017-03-19] MEDS ORDERED: Sodium Chloride 0.9% 1000 ML 1,000 ML IV STA (21:39)
[2017-03-19] MEDS ORDERED: PROTONIX 40 MG IV IV ONE ×2 (21:39→22:09)
[2017-03-19 22:04] LABS: Mean Cell Volume 76.5 fl (78-100); Mean Platelet Volume 11.3 fl (6-9.5); Platelet Count 266 K/mm3 (150-450); Red Blood Count 5.83 M/mm3 (4.1-5.6); Red Cell Distribution Width 14.7 % (11.5-14.0); White Blood Count 17.9 K/mm3 (4.0-10.5)
[2017-03-19] MEDS ORDERED: Sodium Chloride 0.9% 1000 ML 1,000 ML ONE (22:09)
--- NOTE | 2017-03-19 22:15 | ERPHSYRPT ---
- History of Present Illness Time Seen by Provider: 03/19/17 22:13 Source: patient, family Exam Limitations: no limitations Patient Subjective Stated Complaint: pt states he has been vomiting blood today with some clots. Triage Nursing Assessment: pt alert and easton, syed qeustions approp. pt tranfer from wheelchair to stretcher with minimal assist. abd soft with hypo bowel sounds in all 4 quads. small amto f emesis in bag noted with red tinge. Physician History: 46-year-old male with history of diabetes mellitus, started having nausea and vomiting since yesterday. Today he noticed some blood tinge vomiting and has been not able to eat or drink anything today. Patient is insulin-dependent diabetes. Patient denies any fever, chills, abdominal pain, headache, chest pain or syncopal episode or any urinary trouble. Timing/Duration: today Associated Symptoms: nausea, vomiting, loss of appetite, No abdominal pain, No shortness of breath, No heartburn, No diaphoresis, No fever, No headaches, No malaise, No syncope Allergies/Adverse Reactions: bupropion HCl [From Wellbutrin] Allergy (Verified 03/19/17 21:47) "makes my skin crawl" tetracycline Allergy (Verified 03/19/17 21:47) hives Home Medications: Alprazolam [Xanax 0.5 mg] 1 - 2 tab PO Q4HPRN PRN 01/02/17 [History] Sertraline HCl 50 mg [Zoloft 50 mg Tablet] 50 mg PO DAILY 01/02/17 [History] Sumatriptan Succinate [Imitrex] 25 mg PO Q2H/PRN PRN 01/02/17 [History] Hx Tetanus, Diphtheria Vaccination/Date Given: Yes (2015) Hx Influenza Vaccination/Date Given: No Hx Pneumococcal Vaccination/Date Given: No Immunizations Up to Date: Yes - Review of Systems Constitutional: Weakness, No Fever, No Chills Eyes: No Symptoms Ears, Nose, & Throat: No Symptoms Respiratory: No Cough, No Dyspnea Cardiac: No Chest Pain, No Edema, No Syncope Abdominal/Gastrointestinal: Nausea, Vomiting, No Abdominal Pain, No Diarrhea Genitourinary Symptoms: No Dysuria Musculoskeletal: No Back Pain, No Neck Pain Skin: No Rash Neurological: No Dizziness, No Focal Weakness, No Sensory Changes Psychological: No Symptoms Endocrine: No Symptoms All Other Systems: Reviewed and Negative - Past Medical History Pertinent Past Medical History: Yes Neurological History: Seizures ENT History: No Pertinent History Cardiac History: Coronary Artery Disease, Hypertension, Myocardial Infarction ( [place]) Respiratory History: COPD Endocrine Medical History: Diabetes Type II Musculoskeletal History: Arthritis, Other GI Medical History: No Pertinent History History: No Pertinent History Psycho-Social History: Depression, Other Male Reproductive Disorders: No Pertinent History Other Medical History: [place] x 2 smoking 1.5PPD 30 + years, Sleep apnea pt states he has a CPAP at home the he wears occationally when it is working. ulcer to lt foot- pt states getting daily cubicin at [facility] - Past Surgical History Past Surgical History: Yes Neuro Surgical History: No Pertinent History Cardiac: Cardiac Catheterization, Cardiac Stent Respiratory: No Pertinent History Gastrointestinal: No Pertinent History Genitourinary: Other Musculoskeletal: Orthopedic Surgery Male Surgical History: Testicular Surgery Other Surgical History: Three heart stents, DVT - Social History Smoking Status: Current every day smoker How long have you smoked: 30 years Exposure to second hand smoke: Yes Drug Use: marijuana Patient Lives Alone: No - Nursing Vital Signs Nursing Vital Signs: Initial Vital Signs Temperature 98.4 F Temperature Source Oral Pulse Rate 111 Respiratory Rate 20 Blood Pressure [Right Arm] 105/67 Pain Intensity 7 - Physical Exam General Appearance: no apparent distress, alert Eye Exam: PERRL/EOMI, eyes nml inspection Ears, Nose, Throat Exam: normal ENT inspection, TMs normal, pharynx normal, dry mucous membranes Neck Exam: normal inspection, non-tender, supple, full range of motion Respiratory Exam: normal breath sounds, lungs clear, No respiratory distress Cardiovascular Exam: regular rate/rhythm, normal heart sounds, normal peripheral pulses Gastrointestinal/Abdomen Exam: soft, normal bowel sounds, No tenderness, No mass Back Exam: normal inspection, normal range of motion, No CVA tenderness, No vertebral tenderness Extremity Exam: normal inspection, normal range of motion, pelvis stable Neurologic Exam: alert, oriented x 3, cooperative, normal mood/affect, nml cerebellar function, nml station & gait, sensation nml, No motor deficits Skin Exam: normal color, warm, dry, No rash Lymphatic Exam: No adenopathy SpO2: 100 Oxygen Delivery: Room Air - Course Nursing assessment & vital signs reviewed: Yes - Radiology Exams Chest X-ray Interpretation: Reviewed by me, Negative Ordered Tests: Active Orders 24 hr Category Date Time Status CHEST 1 VIEW (PORTABLE) Stat Exams 03/19/17 21:40 Taken CBC W DIFF Stat Lab 03/19/17 21:59 Completed CMP Stat Lab 03/19/17 21:59 Completed Lactic Acid Stat Lab 03/19/17 22:54 Ordered Manual Differential NC Stat Lab 03/19/17 21:59 Completed UA W/RFX UR CULTURE Stat Lab 03/19/17 21:40 Ordered Medication Summary Generic Name Dose Route Start Last Admin Trade Name Freq PRN Reason Stop Dose Admin Piperacillin Sod/Tazobactam Sod 100 mls @ 100 mls/hr 03/19/17 22:37 Zosyn 3.375gm/100 Ml D5w IV 03/19/17 23:36 STAT ONE Discontinued Medications Generic Name Dose Route Start Last Admin Trade Name Freq PRN Reason Stop Dose Admin Sodium Chloride 1,000 mls @ 999 mls/hr 03/19/17 21:39 03/19/17 22:12 Sodium Chloride 0.9% 1000 Ml IV 03/19/17 22:39 999 mls/hr .Q1H1M STA Administration Sodium Chloride Confirm 03/19/17 22:09 Sodium Chloride 0.9% 1000 Ml Administered 03/19/17 22:10 Dose 1,000 mls @ ud .ROUTE .STK-MED ONE Pantoprazole Sodium 40 mg 03/19/17 21:39 03/19/17 22:12 Protonix 40 Mg Iv IV 03/19/17 21:40 40 mg STAT ONE Administration Pantoprazole Sodium Confirm 03/19/17 22:09 Protonix 40 Mg Iv Administered 03/19/17 22:10 Dose 40 mg IV .STK-MED ONE Lab/Rad Data: Laboratory Result Diagrams 03/19/17 21:59 03/19/17 21:59 Laboratory Results 03/19/17 03/19/17 Range/Units 21:59 21:59 WBC 17.9 H (4.0-10.5) K/mm3 RBC 5.83 H (4.1-5.6) M/mm3 Hgb 15.2 (12.5-18.0) gm/dl Hct 44.6 (42-50) % MCV 76.5 L (78-100) fl MCH 26.0 (26-32) pg MCHC 34.1 (32-36) g/dl RDW 14.7 H (11.5-14.0) % Plt Count 266 (150-450) K/mm3 MPV 11.3 H (6-9.5) fl Segmented Neutrophils 89 H (36.-66.) % Band Neutrophils 1 (0.0-2.0) % Lymphocytes (Manual) 6 L (24-44) % Monocytes (Manual) 4 (0.0-12.0) % Differential Comment NORMAL Platelet Estimate NORMAL (NORMAL) Sodium 129 L (136-145) mEq/L Potassium 3.7 (3.5-5.1) mEq/L Chloride 90 L (98-107) mEq/L Carbon Dioxide 27.1 (21-32) mEq/L Anion Gap 15.6 H (5-15) MEQ/L BUN 18 (9-20) mg/dL Creatinine 0.95 (0.55-1.30) mg/dl Estimated GFR > 60 ML/MIN Glucose 343 H (70-110) MG/DL Calcium 9.9 (8.5-10.1) mg/dL Total Bilirubin 0.40 (0.2-1.0) mg/dL AST 17 (15-37) U/L ALT 6 L (12-78) U/L Alkaline Phosphatase 100 (46-116) U/L Serum Total Protein 8.2 (6.4-8.2) gm/dL Albumin 2.3 L (3.4-5.0) g/dL - Progress Progress: improved Progress Note: 03/19/17 23:23 Patient has small vomitus which didnot present any blood clot or blood. patient is feeling better, able to keep fluid down. Counseled pt/family regarding: lab results, diagnosis, need for follow-up - Departure Time of Disposition: 23:22 Departure Disposition: Home Clinical Impression: Nausea and vomiting in adult, Diabetic infection of left foot Uncontrolled diabetes mellitus Qualifiers: Diabetes mellitus type: type 2 Diabetes mellitus complication status: with skin complications Diabetes mellitus complication detail: with foot ulcer Condition: Stable Critical Care Time: Yes Critical Care Time(excluding separately billable procedures): 30-74 minutes Referrals: VINNIE RODRIGUES [Primary Care Provider] - Instructions: Nausea -- Adult, Vomiting -- Adult Additional Instructions: Please follow the instructions given to you. Please take your medication as prescribed if given. If symptoms recur or get worse, come back to the emergency room if you cannot reach your primary care physician, or call your primary care physician for an appointment. Again if your symptoms get worse, come back to the emergency room. Thanks for visiting emergency room, and let us take care of you.. Continue your IV antibiotics as outpatient.
[2017-03-19 22:19] LABS: ALBUMIN 2.3 g/dL (3.4-5.0); ALKALINE PHOSPHATASE 100 U/L (46-116); ANION GAP 15.6 MEQ/L (5-15); BLOOD UREA NITROGEN 18 mg/dL (9-20); CHLORIDE 90 mEq/L (98-107); Carbon Dioxide 27.1 mEq/L (21-32); Glucose 343 MG/DL (70-110); Potassium 3.7 mEq/L (3.5-5.1); SGOT/AST 17 U/L (15-37); SGPT/ALT 6 U/L (12-78); SODIUM 129 mEq/L (136-145); Total Protein 8.2 gm/dL (6.4-8.2)
[2017-03-19] MEDS ORDERED: Zosyn 3.375GM/100 Ml D5W 3.375 GM/100 ML IVPB IV ONE (22:37)
[2017-03-19 22:52] LABS: BAND 1 % (0.0-2.0); Platelet Estimate NORMAL (NORMAL); Total Cells Counted 100
[2017-03-19 23:24] LABS: Lactic Acid 2.2 (0.4-2.0)
[2017-03-19 23:44] LABS: Bilirubin NEGATIVE (NEGATIVE); COMPLETE URINE MICROSCOPIC? YES; Collection Type VOID; Glucose 1000 mg/dL (NEGATIVE); Leukocyte Esterase NEGATIVE (NEGATIVE); Mucus MODERATE /HPF (NEGATIVE)
[2017-03-19 23:45] LABS: ADD URINE CULTURE? YES (NO); Bacteria MODERATE /HPF (NEGATIVE); Epithelial Cells MODERATE /HPF (FEW)
[2017-03-19 23:47] VITALS: BP 148/68; PULSE 112; O2SAT 99
--- NOTE | 2017-03-20 08:10 | XRAY ---
Indication: Nausea. Comparison: September 02, 2016. Portable chest again demonstrates normal heart and lungs. New left arm PICC line in good position. Bony thorax intact.
== END 2017-03-19 23:59 | disposition home or self-care (01) ==
LOC: ED 21:04
DX: R11.2 Nausea with vomiting, unspecified (principal); E11.621 Type 2 diabetes mellitus with foot ulcer; I25.10 Atherosclerotic heart disease of native coronary artery without angina pectoris; I10 Essential (primary) hypertension; I25.2 Old myocardial infarction
CPT/HCPCS: 36415; 71010; 80053; 81000; 83605; 85025; 87086; 96360; 96361; 96374; 99284; J2543

== ENCOUNTER 2017-03-30 00:23 | Emergency (ER) | payer MEDICARE ==
[2017-03-30] MEDS ORDERED: TORAdol 30 mg Injection IM ONE ×2 (00:54→01:36)
[2017-03-30] MEDS ORDERED: MORPHINE SULFATE 4 MG INJ IM ONE (00:56)
[2017-03-30] MEDS ORDERED: MORPHINE SULFATE 4 MG INJ ONE ×2 (00:58→05:04)
--- NOTE | 2017-03-30 01:01 | ERPHSYRPT ---
- History of Present Illness Time Seen by Provider: 03/30/17 00:43 Source: patient Exam Limitations: no limitations Patient Subjective Stated Complaint: Pt sts lower back pain x 1 week, pain 10/ 10. Pt saw PCP today Dr. Tyler and was given toradol shot which did not help his pain. Sts got Rx for gabapentin and "other pill" which have have not helped. Triage Nursing Assessment: Pt alert, oriented, answers all questions appropriately. Skin p/w/d, resps non-labored. Pt yelling out and moaning in pain. Dressing noted to left foot. Pt has PICC left arm due to receiving infusions. Physician History: 46-year-old white male arrives via medics with complaint of low back pain in his sacral region symptoms for one week. Patient states that he has a history of chronic low back pain he was seen by Dr. Tyler today and was given an injection and released he states that he continues to have low back pain. Patient does have a history of being on benzodiazepines as well as narcotic analgesia . Patient denies any recent injury. Past medical history includes seizures, diabetes type 2, COPD, coronary artery disease, high blood pressure, myocardial infarction, arthritis, depression, sleep apnea. Patient uses C Pap. Patient has a chronic left foot ulcer for which she receives Cubicin injection at [facility]. Past surgical history includes cardiac catheter, cardiac stent, testicular surgery, DVT. Timing/Duration: week(s) (symptoms for one week) Severity: moderate Modifying Factors: Improves With: nothing Associated Symptoms: No nausea, No vomiting, No abdominal pain, No shortness of breath, No heartburn, No diaphoresis, No cough, No chills, No chest pain, No headaches, No loss of appetite, No malaise, No syncope, No seizure, No weakness Allergies/Adverse Reactions: bupropion HCl [From Wellbutrin] Allergy (Verified 03/30/17 00:29) "makes my skin crawl" tetracycline Allergy (Verified 03/30/17 00:29) hives Home Medications: Alprazolam [Xanax 0.5 mg] 1 - 2 tab PO Q4HPRN PRN 01/02/17 [History] Sumatriptan Succinate [Imitrex] 25 mg PO Q2H/PRN PRN 01/02/17 [History] Gabapentin 800 mg PO DAILY 03/30/17 [History] Hx Tetanus, Diphtheria Vaccination/Date Given: Yes (2015) Hx Influenza Vaccination/Date Given: No Hx Pneumococcal Vaccination/Date Given: No Immunizations Up to Date: Yes - Review of Systems Constitutional: No Fever, No Chills Eyes: No Symptoms Ears, Nose, & Throat: No Symptoms Respiratory: No Cough, No Dyspnea Cardiac: No Chest Pain, No Edema, No Syncope Abdominal/Gastrointestinal: No Abdominal Pain, No Nausea, No Vomiting, No Diarrhea Genitourinary Symptoms: No Dysuria Musculoskeletal: Back Pain (pain in the low sacral region) Skin: Other (patient with a chronic left foot ulcer receives Cubicin infusion at [facility]), No Rash Neurological: No Dizziness, No Focal Weakness, No Sensory Changes Psychological: No Symptoms Endocrine: No Symptoms All Other Systems: Reviewed and Negative - Past Medical History Pertinent Past Medical History: Yes Neurological History: Seizures ENT History: No Pertinent History Cardiac History: Coronary Artery Disease, Hypertension, Myocardial Infarction ( [place]) Respiratory History: COPD Endocrine Medical History: Diabetes Type II Musculoskeletal History: Arthritis, Other GI Medical History: No Pertinent History History: No Pertinent History Psycho-Social History: Depression, Other Male Reproductive Disorders: No Pertinent History Other Medical History: [place] x 2 smoking 1.5PPD 30 + years, Sleep apnea pt states he has a CPAP at home the he wears occationally when it is working. ulcer to lt foot- pt states getting daily cubicin at [facility] - Past Surgical History Past Surgical History: Yes Neuro Surgical History: No Pertinent History Cardiac: Cardiac Catheterization, Cardiac Stent Respiratory: No Pertinent History Gastrointestinal: No Pertinent History Genitourinary: Other Musculoskeletal: Orthopedic Surgery Male Surgical History: Testicular Surgery Other Surgical History: Three heart stents, DVT - Social History Smoking Status: Light tobacco smoker How long have you smoked: 30 years Exposure to second hand smoke: No Drug Use: marijuana Patient Lives Alone: No - Nursing Vital Signs Nursing Vital Signs: Initial Vital Signs Temperature 98.3 F Temperature Source Oral Pulse Rate 103 Respiratory Rate 16 Blood Pressure [] 140/77 Pain Intensity [] 10 Pain Intensity 10 - Physical Exam General Appearance: moderate distress, other (well-developed well-nourished white male moaning) Eye Exam: PERRL/EOMI, eyes nml inspection Ears, Nose, Throat Exam: normal ENT inspection, TMs normal, pharynx normal, moist mucous membranes Neck Exam: normal inspection, non-tender, supple, full range of motion Respiratory Exam: normal breath sounds, lungs clear, No respiratory distress Cardiovascular Exam: regular rate/rhythm, normal heart sounds, normal peripheral pulses Gastrointestinal/Abdomen Exam: soft, normal bowel sounds, No tenderness, No mass Back Exam: other (patient has a approximately 3 by5 cm ecchymosis right sacral area near the cleft tender with palpation in this area) Extremity Exam: normal inspection, normal range of motion, pelvis stable Neurologic Exam: alert, oriented x 3, cooperative, normal mood/affect, nml cerebellar function, nml station & gait, sensation nml, No motor deficits Skin Exam: normal color, warm, dry, other (patient has an ulcer on his left posterior heel, approximately 3-4 cm area appears to be clean there is no erythema to the wound edges there is no drainage), No rash SpO2 Interpretation: normal (95%) SpO2: 95 Oxygen Delivery: Room Air - Radiology Exams L-Spine X-ray Interpretation: Reviewed by me, Other (x-ray lumbar series: Chronic degenerative changes loss of lumbar lordosis) Ordered Tests: Active Orders 24 hr Category Date Time Status Accucheck STAT Care 03/30/17 01:56 Active IV Insertion STAT Care 03/30/17 01:56 Active LUMBAR LIMITED (2 OR 3 VIEWS) Stat Exams 03/30/17 00:54 Taken CBC W DIFF Stat Lab 03/30/17 02:16 Completed CMP Stat Lab 03/30/17 02:16 Completed UA W/ MICROSCOPIC Stat Lab 03/30/17 01:41 Completed Medication Summary Discontinued Medications Generic Name Dose Route Start Last Admin Trade Name Chris PRN Reason Stop Dose Admin Sodium Chloride 1,000 mls @ 999 mls/hr 03/30/17 01:56 03/30/17 02:08 Sodium Chloride 0.9% 1000 Ml IV 03/30/17 02:56 999 mls/hr .Q1H1M STA Administration Sodium Chloride Confirm 03/30/17 02:07 Sodium Chloride 0.9% 1000 Ml Administered 03/30/17 02:08 Dose 1,000 mls @ ud .ROUTE .STK-MED ONE Sodium Chloride 1,000 mls @ 999 mls/hr 03/30/17 02:48 03/30/17 04:29 Sodium Chloride 0.9% 1000 Ml IV 03/30/17 03:48 999 mls/hr .Q1H1M STA Administration Sodium Chloride Confirm 03/30/17 03:21 Sodium Chloride 0.9% 1000 Ml Administered 03/30/17 03:22 Dose 1,000 mls @ ud .ROUTE .STK-MED ONE Ketorolac Tromethamine 60 mg 03/30/17 00:54 03/30/17 01:06 Toradol 30 Mg Injection IM 03/30/17 00:55 Not Given STAT ONE Ketorolac Tromethamine 60 mg 03/30/17 01:36 03/30/17 01:45 Toradol 30 Mg Injection IM 03/30/17 01:37 60 mg STAT ONE Administration Ketorolac Tromethamine Confirm 03/30/17 01:41 Toradol 30 Mg Injection Administered 03/30/17 01:42 Dose 60 mg .ROUTE .STK-MED ONE Morphine Sulfate 4 mg 03/30/17 00:56 03/30/17 01:03 Morphine Sulfate 4 Mg Inj IM 03/30/17 00:57 4 mg STAT ONE Administration Morphine Sulfate Confirm 03/30/17 00:58 Morphine Sulfate 4 Mg Inj Administered 03/30/17 00:59 Dose 4 mg .ROUTE .STK-MED ONE Morphine Sulfate 4 mg 03/30/17 04:50 03/30/17 05:05 Morphine Sulfate 4 Mg Inj IV 03/30/17 04:51 4 mg STAT ONE Administration Morphine Sulfate Confirm 03/30/17 05:04 Morphine Sulfate 4 Mg Inj Administered 03/30/17 05:05 Dose 4 mg .ROUTE .STK-MED ONE Lab/Rad Data: Laboratory Result Diagrams 03/30/17 02:16 03/30/17 02:16 Laboratory Results 03/30/17 03/30/17 03/30/17 Range/Units 02:16 02:16 01:41 WBC 14.3 H (4.0-10.5) K/mm3 RBC 4.24 (4.1-5.6) M/mm3 Hgb 10.8 L (12.5-18.0) gm/dl Hct 33.6 L (42-50) % MCV 79.2 (78-100) fl MCH 25.4 L (26-32) pg MCHC 32.1 (32-36) g/dl RDW 14.4 H (11.5-14.0) % Plt Count 295 (150-450) K/mm3 MPV 10.6 H (6-9.5) fl Gran % 89.1 H (36.0-66.0) % Lymphocytes % 6.1 L (24.0-44.0) % Monocytes % 4.1 (0.0-12.0) % Eosinophils % 0.6 (0.00-5.0) % Basophils % 0.1 (0.0-0.4) % Basophils # 0.01 (0-0.4) Sodium 130 L (136-145) mEq/L Potassium 4.4 (3.5-5.1) mEq/L Chloride 95 L (98-107) mEq/L Carbon Dioxide 29.0 (21-32) mEq/L Anion Gap 10.6 (5-15) MEQ/L BUN 9 (9-20) mg/dL Creatinine 0.63 (0.55-1.30) mg/dl Estimated GFR > 60 ML/MIN Glucose 349 H (70-110) MG/DL Calcium 8.6 (8.5-10.1) mg/dL Total Bilirubin 0.20 (0.2-1.0) mg/dL AST 16 (15-37) U/L ALT 6 L (12-78) U/L Alkaline Phosphatase 86 (46-116) U/L Serum Total Protein 7.3 (6.4-8.2) gm/dL Albumin 1.9 L (3.4-5.0) g/dL Ur Collection Type CLEAN CATCH Urine Color YELLOW (YELLOW) Urine Appearance CLEAR (CLEAR) Urine pH 7.0 (5-6) Ur Specific [place] 1.010 (1.005-1.025) Urine Protein NEGATIVE (Negative) Urine Ketones NEGATIVE (NEGATIVE) Urine Blood 50 (0-5) Khai/ul Urine Nitrite NEGATIVE (NEGATIVE) Urine Bilirubin NEGATIVE (NEGATIVE) Urine Urobilinogen NORMAL (0-1) mg/dL Ur Leukocyte Esterase NEGATIVE (NEGATIVE) Urine Microscopic RBC 2-5 (0-2) /HPF Urine Bacteria RARE (NEGATIVE) /HPF Urine Glucose 1000 (NEGATIVE) mg/dL Specimen Received [id number] - Progress Progress: improved Progress Note: 03/30/17 05:16 46-year-old white male with history of seizures, diabetes, COPD, coronary artery disease, high blood pressure, myocardial infarction, arthritis, depression Patient arrives with complaint of pain in the lumbosacral area symptoms for a week. Patient states that he had been seen by his family physician Dr. Tyler earlier today to which she has recently changed he states he received the injection of possibly Toradol. That he began to have pain again in his posterior lumbosacral area. On arrival patient is moaning in pain he is noted to be hyperglycemic. Patient is given morphine 4 mg IM, Toradol and then morphine 4 mg IV. Labs are obtained to the patient was given 2 L of normal saline. X-ray of the back shows what appears to be chronic degenerative changes with straightening of the spine. Patient continues to complain of pain. Will discuss case with Dr. Tyler. 03/30/17 05:[address] Tyler. Dr. Tyler states patient has chronic history of pain he does not want to place the patient on narcotics. He does not feel that the patient needs to be admitted at this time. I went back and talked with the patient he actually seems to be feeling better at this time. Will go ahead and discharge the patient. 03/30/17 05:54 patient's blood pressure is markedly improved - Departure Time of Disposition: 05:52 Departure Disposition: Home Clinical Impression: Hyperglycemia Back pain Qualifiers: Back pain location: low back pain Chronicity: chronic Back pain laterality: midline Sciatica presence: without sciatica Qualified Code(s): M54.5 - Low back pain Condition: Fair Critical Care Time: No Referrals: VINNIE RODRIGUES [ACTIVE STAFF] - Instructions: Low Back Pain Additional Instructions: Return home. Tylenol every 4 hours as needed for pain. Medications as prescribed by your family doctor. Follow-up with your family doctor. Return for acute distress or for severe symptoms.
[2017-03-30] MEDS ORDERED: TORAdol 30 mg Injection ONE (01:41)
[2017-03-30 01:55] LABS: ADD URINE CULTURE? NO (NO); Bacteria RARE /HPF (NEGATIVE); Bilirubin NEGATIVE (NEGATIVE); Blood 50 Ery/ul (0-5); COMPLETE URINE MICROSCOPIC? YES; Collection Type CLEAN CATCH; Glucose 1000 mg/dL (NEGATIVE); Leukocyte Esterase NEGATIVE (NEGATIVE)
[2017-03-30] MEDS ORDERED: Sodium Chloride 0.9% 1000 ML 1,000 ML IV STA ×2 (01:56→02:48)
[2017-03-30] MEDS ORDERED: Sodium Chloride 0.9% 1000 ML 1,000 ML ONE ×2 (02:07→03:21)
[2017-03-30 02:20] LABS: BASOPHIL % 0.1 % (0.0-0.4); Eosinophil % 0.6 % (0.00-5.0); Granulocytes % 89.1 % (36.0-66.0); Lymphocytes % 6.1 % (24.0-44.0); Mean Cell Volume 79.2 fl (78-100); Mean Platelet Volume 10.6 fl (6-9.5); Monocytes % 4.1 % (0.0-12.0); Platelet Count 295 K/mm3 (150-450); Red Blood Count 4.24 M/mm3 (4.1-5.6); Red Cell Distribution Width 14.4 % (11.5-14.0); White Blood Count 14.3 K/mm3 (4.0-10.5)
[2017-03-30 02:23] LABS: Mean Corpuscular Hemoglobin 25.4 pg (26-32)
[2017-03-30 02:38] LABS: ALBUMIN 1.9 g/dL (3.4-5.0); ALKALINE PHOSPHATASE 86 U/L (46-116); ANION GAP 10.6 MEQ/L (5-15); BLOOD UREA NITROGEN 9 mg/dL (9-20); CHLORIDE 95 mEq/L (98-107); Glucose 349 MG/DL (70-110); Potassium 4.4 mEq/L (3.5-5.1); SGOT/AST 16 U/L (15-37); SODIUM 130 mEq/L (136-145); Total Protein 7.3 gm/dL (6.4-8.2)
[2017-03-30 02:46] LABS: SGPT/ALT 6 U/L (12-78)
[2017-03-30] MEDS ORDERED: MORPHINE SULFATE 4 MG INJ IV ONE (04:50)
[2017-03-30 06:59] VITALS: PULSE 108
[2017-03-30 07:01] VITALS: BP 131/85; O2SAT 96
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
== END 2017-03-30 07:02 | disposition home or self-care (01) ==
LOC: ED 00:23
DX: E11.65 Type 2 diabetes mellitus with hyperglycemia (principal); M54.5 Low back pain; J44.9 Chronic obstructive pulmonary disease, unspecified; I25.10 Atherosclerotic heart disease of native coronary artery without angina pectoris; I10 Essential (primary) hypertension; I25.2 Old myocardial infarction; L97.529 Non-pressure chronic ulcer of other part of left foot with unspecified severity; Z79.2 Long term (current) use of antibiotics; Z79.899 Other long term (current) drug therapy; Z98.61 Coronary angioplasty status; Z86.718 Personal history of other venous thrombosis and embolism
CPT/HCPCS: 36415; 36591; 72100; 80053; 81000; 82962; 85025; 96372; 96374; 96375; 96376; 99283; 99284; J1885; J2270

== ENCOUNTER 2017-04-02 14:22 | Emergency (ER) | payer MEDICARE ==
[2017-04-02] MEDS ORDERED: Sodium Chloride 0.9% 1000 ML 1,000 ML ONE ×3 (14:29→16:21)
[2017-04-02] MEDS ORDERED: Sodium Chloride 0.9% 1000 ML 1,000 ML IV STA ×3 (14:39→16:09)
[2017-04-02 14:47] LABS: A-aADO2 26; ARTERIAL BLD GAS O2 SATURATION 95.6 % (95-100); ARTERIAL BLOOD GAS BASE EXCESS 0.8 (-2.0-2.0); ARTERIAL BLOOD GAS FIO2 21 %; ARTERIAL BLOOD GAS PO2 65 mmHg (75-100); ARTERIAL BLOOD GAS pH 7.36 (7.35-7.45)
--- NOTE | 2017-04-02 14:47 | ERPHSYRPT ---
- History of Present Illness Time Seen by Provider: 04/02/17 14:42 Source: patient Exam Limitations: no limitations Patient Subjective Stated Complaint: Spouse states patient has not been acting right today. He took a new medication, feldene, and she thinks this could be the cause. Pt is also a known diabetic. Triage Nursing Assessment: Pt not responding to commands upon arrival but responsive to painful stimuli. pt responding and answering questions at the end of assessment. pt unable to get from car to stretcher. took 5 staff members to get patient on the bed. MRSA infection to left foot. PICC line in place in left arm. accucheck upon arrival "HIGH". pt c/o back pain Physician History: 46 y/o male with history of DM Type II brought in by family for lethargy and weakness. Pt has been getting worse throughout the day and arrives at the ambulance bay unable to stand. The initial finger stick shows HI. Pt is unable to give much of a history due to lethargy. Pt does complain of lower back pain and started on an anti-inflammatory medication called feldene. Timing/Duration: today Severity: moderate Allergies/Adverse Reactions: bupropion HCl [From Wellbutrin] Allergy (Verified 03/30/17 00:29) "makes my skin crawl" tetracycline Allergy (Verified 03/30/17 00:29) hives Home Medications: Alprazolam [Xanax 0.5 mg] 1 - 2 tab PO Q4HPRN PRN 01/02/17 [History] Sumatriptan Succinate [Imitrex] 25 mg PO Q2H/PRN PRN 01/02/17 [History] Gabapentin 800 mg PO DAILY 03/30/17 [History] Hx Tetanus, Diphtheria Vaccination/Date Given: Yes (2015) Hx Influenza Vaccination/Date Given: No Hx Pneumococcal Vaccination/Date Given: No - Review of Systems Constitutional: Lethargy, Malaise, Weakness, No Fever, No Chills Eyes: No Symptoms Ears, Nose, & Throat: No Symptoms Respiratory: No Cough, No Dyspnea Cardiac: No Chest Pain, No Edema, No Syncope Abdominal/Gastrointestinal: No Abdominal Pain, No Nausea, No Vomiting, No Diarrhea Genitourinary Symptoms: No Dysuria Musculoskeletal: Back Pain, No Neck Pain Skin: No Rash Neurological: Lethargy, No Dizziness, No Focal Weakness, No Sensory Changes Psychological: No Symptoms Endocrine: No Symptoms All Other Systems: Reviewed and Negative - Past Medical History Pertinent Past Medical History: Yes Neurological History: Seizures ENT History: No Pertinent History Cardiac History: Coronary Artery Disease, Hypertension, Myocardial Infarction ( [place]) Respiratory History: COPD, Sleep Apnea Endocrine Medical History: Diabetes Type II Musculoskeletal History: Arthritis, Other GI Medical History: No Pertinent History History: No Pertinent History Psycho-Social History: Depression, Other Male Reproductive Disorders: No Pertinent History Other Medical History: [place] x 2 smoking 1.5PPD 30 + years, Sleep apnea pt states he has a CPAP at home the he wears occationally when it is working. ulcer to lt foot- pt states getting daily cubicin at [facility] - Past Surgical History Past Surgical History: Yes Neuro Surgical History: No Pertinent History Cardiac: Cardiac Catheterization, Cardiac Stent Respiratory: No Pertinent History Gastrointestinal: No Pertinent History Genitourinary: Other Musculoskeletal: Orthopedic Surgery Male Surgical History: Testicular Surgery Other Surgical History: Three heart stents, DVT - Social History Smoking Status: Light tobacco smoker How long have you smoked: 30 years Exposure to second hand smoke: No Drug Use: marijuana Patient Lives Alone: No - Nursing Vital Signs Nursing Vital Signs: Initial Vital Signs Pulse Rate 102 Respiratory Rate 22 Blood Pressure [Left Arm] 118/78 Pain Intensity 9 - Physical Exam General Appearance: moderate distress, lethargy, cachetic Eye Exam: PERRL/EOMI, eyes nml inspection Ears, Nose, Throat Exam: normal ENT inspection, TMs normal, pharynx normal, moist mucous membranes Neck Exam: normal inspection, non-tender, supple, full range of motion Respiratory Exam: normal breath sounds, lungs clear, No respiratory distress Cardiovascular Exam: regular rate/rhythm, normal heart sounds, normal peripheral pulses Gastrointestinal/Abdomen Exam: soft, normal bowel sounds, No tenderness, No mass Back Exam: normal inspection, normal range of motion, No CVA tenderness, No vertebral tenderness Extremity Exam: normal inspection, normal range of motion, pelvis stable Neurologic Exam: alert, oriented x 3, cooperative, normal mood/affect, nml cerebellar function, nml station & gait, sensation nml, No motor deficits Skin Exam: normal color, warm, dry, No rash Lymphatic Exam: No adenopathy SpO2: 96 Oxygen Delivery: Room Air - Course Nursing assessment & vital signs reviewed: Yes Ordered Tests: Active Orders 24 hr Category Date Time Status Catheter-Coxsackie Lim STAT Care 04/02/17 14:37 Active Catheter-Coxsackie Lim STAT Care 04/02/17 14:38 Active CHEST 1 VIEW (PORTABLE) Stat Exams 04/02/17 14:39 Completed ABG [ARTERIAL BLOOD GASES] Stat Lab 04/02/17 14:37 Completed ACETAMINOPHEN Stat Lab 04/02/17 14:40 Completed BLOOD CULTURE Stat Lab 04/02/17 16:08 Received CBCD [CBC W DIFF] Stat Lab 04/02/17 14:37 Completed CMP Stat Lab 04/02/17 14:37 Completed CULTURE,WOUND Stat Lab 04/02/17 15:00 Received ETHYL ALCOHOL Stat Lab 04/02/17 14:41 Completed SALICYLATE Stat Lab 04/02/17 14:40 Completed UA W/ MICROSCOPIC Stat Lab 04/02/17 14:37 Completed Urine Triage Profile Stat Lab 04/02/17 14:38 Completed Medication Summary Discontinued Medications Generic Name Dose Route Start Last Admin Trade Name Freq PRN Reason Stop Dose Admin Hydromorphone HCl 1 mg 04/02/17 16:23 04/02/17 16:38 Hydromorphone 1 Mg/Ml Ampule IV 04/02/17 16:24 1 mg STAT ONE Administration Hydromorphone HCl Confirm 04/02/17 16:38 Hydromorphone 1 Mg/Ml Ampule Administered 04/02/17 16:39 Dose 1 mg .ROUTE .STK-MED ONE Sodium Chloride Confirm 04/02/17 14:29 Sodium Chloride 0.9% 1000 Ml Administered 04/02/17 14:30 Dose 1,000 mls @ ud .ROUTE .STK-MED ONE Sodium Chloride 1,000 mls @ 999 mls/hr 04/02/17 14:39 04/02/17 14:40 Sodium Chloride 0.9% 1000 Ml IV 04/02/17 15:39 999 mls/hr .Q1H1M STA Administration Sodium Chloride 1,000 mls @ 999 mls/hr 04/02/17 15:06 04/02/17 15:15 Sodium Chloride 0.9% 1000 Ml IV 04/02/17 16:06 999 mls/hr .Q1H1M STA Administration Sodium Chloride Confirm 04/02/17 15:09 Sodium Chloride 0.9% 1000 Ml Administered 04/02/17 15:10 Dose 1,000 mls @ ud .ROUTE .STK-MED ONE Sodium Chloride 1,000 mls @ 999 mls/hr 04/02/17 16:09 04/02/17 16:22 Sodium Chloride 0.9% 1000 Ml IV 04/02/17 17:09 999 mls/hr .Q1H1M STA Administration Sodium Chloride Confirm 04/02/17 16:21 Sodium Chloride 0.9% 1000 Ml Administered 04/02/17 16:22 Dose 1,000 mls @ ud .ROUTE .STK-MED ONE Insulin Human Regular 10 unit 04/02/17 15:05 04/02/17 15:14 Novolin R IV 04/02/17 15:06 10 unit STAT ONE Administration Insulin Human Regular Confirm 04/02/17 15:09 Novolin R Administered 04/02/17 15:10 Dose 10 unit .ROUTE .STK-MED ONE Insulin Human Regular 5 unit 04/02/17 16:09 04/02/17 16:22 Novolin R IV 04/02/17 16:10 5 unit STAT ONE Administration Insulin Human Regular Confirm 04/02/17 16:21 Novolin R Administered 04/02/17 16:22 Dose 5 unit .ROUTE .STK-MED ONE Morphine Sulfate 4 mg 04/02/17 15:26 04/02/17 15:34 Morphine Sulfate 4 Mg Inj IV 04/02/17 15:27 4 mg STAT ONE Administration Morphine Sulfate Confirm 04/02/17 15:33 Morphine Sulfate 4 Mg Inj Administered 04/02/17 15:34 Dose 4 mg .ROUTE .STK-MED ONE Lab/Rad Data: Laboratory Result Diagrams 04/02/17 14:37 04/02/17 14:37 Laboratory Results 04/02/17 04/02/17 04/02/17 Range/Units 14:41 14:40 14:38 WBC (4.0-10.5) K/mm3 RBC (4.1-5.6) M/mm3 Hgb (12.5-18.0) gm/dl Hct (42-50) % MCV (78-100) fl MCH (26-32) pg MCHC (32-36) g/dl RDW (11.5-14.0) % Plt Count (150-450) K/mm3 MPV (6-9.5) fl Gran % (36.0-66.0) % Lymphocytes % (24.0-44.0) % Monocytes % (0.0-12.0) % Eosinophils % (0.00-5.0) % Basophils % (0.0-0.4) % Basophils # (0-0.4) Puncture Site pCO2 (35-45) mmHg pO2 (75-100) mmHg Base Excess (-2.0-2.0) O2 Saturation (94-100) g/dF ABG pH (7.35-7.45) ABG HCO3 (22-28) ABG O2 Sat (Measured) (95-100) % Farhad Test A-a Gradient a/A Ratio Hemoglobin Carboxyhemoglobin (0.0-6.9) % THgb Methemoglobin (1.4-1.5) % Potassium (3.5-5.1) Temperature C POC O2 Flow Rate % Sodium (136-145) mEq/L Chloride (98-107) mEq/L Carbon Dioxide (21-32) mEq/L Anion Gap (5-15) MEQ/L BUN (9-20) mg/dL Creatinine (0.55-1.30) mg/dl Estimated GFR ML/MIN Glucose (70-110) MG/DL Calcium (8.5-10.1) mg/dL Total Bilirubin (0.2-1.0) mg/dL AST (15-37) U/L ALT (12-78) U/L Alkaline Phosphatase (46-116) U/L Serum Total Protein (6.4-8.2) gm/dL Albumin (3.4-5.0) g/dL Ur Collection Type Urine Color (YELLOW) Urine Appearance (CLEAR) Urine pH (5-6) Ur Specific [place] (1.005-1.025) Urine Protein (Negative) Urine Ketones (NEGATIVE) Urine Blood (0-5) Khai/ul Urine Nitrite (NEGATIVE) Urine Bilirubin (NEGATIVE) Urine Urobilinogen (0-1) mg/dL Ur Leukocyte Esterase (NEGATIVE) Urine Microscopic RBC (0-2) /HPF Urine Bacteria (NEGATIVE) /HPF Urine Glucose (NEGATIVE) mg/dL Salicylates < 2.8 L (2.8-20.0) mg/dl Urine Opiates Level NEG. (NEGATIVE) Ur Methadone NEG. (NEGATIVE) Acetaminophen < 2.0 L (10-30) ug/ml Urine Barbiturates NEG. (NEGATIVE) Ur Phencyclidine (PCP) NEG. (NEGATIVE) Urine Amphetamine NEG. (NEGATIVE) U Benzodiazepine Level NEG. (NEGATIVE) Urine Cocaine NEG. (NEGATIVE) Urine Marijuana (THC) NEG. (NEGATIVE) Ethyl Alcohol < 0.010 (0.00-0.01) % Specimen Received 04/02/17 04/02/17 04/02/17 Range/Units 14:37 14:37 14:37 WBC (4.0-10.5) K/mm3 RBC (4.1-5.6) M/mm3 Hgb (12.5-18.0) gm/dl Hct (42-50) % MCV (78-100) fl MCH (26-32) pg MCHC (32-36) g/dl RDW (11.5-14.0) % Plt Count (150-450) K/mm3 MPV (6-9.5) fl Gran % (36.0-66.0) % Lymphocytes % (24.0-44.0) % Monocytes % (0.0-12.0) % Eosinophils % (0.00-5.0) % Basophils % (0.0-0.4) % Basophils # (0-0.4) Puncture Site RIGHT BRACHIAL pCO2 47 H (35-45) mmHg pO2 65 L (75-100) mmHg Base Excess 0.8 (-2.0-2.0) O2 Saturation 92.8 L (94-100) g/dF ABG pH 7.36 (7.35-7.45) ABG HCO3 26.6 (22-28) ABG O2 Sat (Measured) 95.6 (95-100) % Farhad Test NOT APPLICABLE A-a Gradient 26 a/A Ratio 0.71 Hemoglobin 9.4 Carboxyhemoglobin 2.3 (0.0-6.9) % THgb Methemoglobin 0.6 L (1.4-1.5) % Potassium 4.3 4.4 (3.5-5.1) Temperature 37.0 C POC O2 Flow Rate 21 % Sodium 128 L (136-145) mEq/L Chloride 91 L (98-107) mEq/L Carbon Dioxide 28.1 (21-32) mEq/L Anion Gap 13.4 (5-15) MEQ/L BUN 19 (9-20) mg/dL Creatinine 1.35 H (0.55-1.30) mg/dl Estimated GFR > 60 ML/MIN Glucose 642 H* (70-110) MG/DL Calcium 8.8 (8.5-10.1) mg/dL Total Bilirubin 0.10 L (0.2-1.0) mg/dL AST 19 (15-37) U/L ALT 6 L (12-78) U/L Alkaline Phosphatase 171 H (46-116) U/L Serum Total Protein 7.9 (6.4-8.2) gm/dL Albumin 2.0 L (3.4-5.0) g/dL Ur Collection Type VOID Urine Color YELLOW (YELLOW) Urine Appearance CLEAR (CLEAR) Urine pH 5.0 (5-6) Ur Specific [place] 1.005 (1.005-1.025) Urine Protein NEGATIVE (Negative) Urine Ketones NEGATIVE (NEGATIVE) Urine Blood 250 (0-5) Khai/ul Urine Nitrite NEGATIVE (NEGATIVE) Urine Bilirubin NEGATIVE (NEGATIVE) Urine Urobilinogen NORMAL (0-1) mg/dL Ur Leukocyte Esterase NEGATIVE (NEGATIVE) Urine Microscopic RBC 2-5 (0-2) /HPF Urine Bacteria RARE (NEGATIVE) /HPF Urine Glucose 1000 (NEGATIVE) mg/dL Salicylates (2.8-20.0) mg/dl Urine Opiates Level (NEGATIVE) Ur Methadone (NEGATIVE) Acetaminophen (10-30) ug/ml Urine Barbiturates (NEGATIVE) Ur Phencyclidine (PCP) (NEGATIVE) Urine Amphetamine (NEGATIVE) U Benzodiazepine Level (NEGATIVE) Urine Cocaine (NEGATIVE) Urine Marijuana (THC) (NEGATIVE) Ethyl Alcohol (0.00-0.01) % Specimen Received 04/02/17 1440 04/02/17 Range/Units 14:37 WBC 13.1 H (4.0-10.5) K/mm3 RBC 4.14 (4.1-5.6) M/mm3 Hgb 10.4 L (12.5-18.0) gm/dl Hct 33.5 L (42-50) % MCV 80.9 (78-100) fl MCH 25.1 L (26-32) pg MCHC 31.0 L (32-36) g/dl RDW 14.5 H (11.5-14.0) % Plt Count 234 (150-450) K/mm3 MPV 11.5 H (6-9.5) fl Gran % 89.4 H (36.0-66.0) % Lymphocytes % 5.2 L (24.0-44.0) % Monocytes % 4.1 (0.0-12.0) % Eosinophils % 1.1 (0.00-5.0) % Basophils % 0.2 (0.0-0.4) % Basophils # 0.02 (0-0.4) Puncture Site pCO2 (35-45) mmHg pO2 (75-100) mmHg Base Excess (-2.0-2.0) O2 Saturation (94-100) g/dF ABG pH (7.35-7.45) ABG HCO3 (22-28) ABG O2 Sat (Measured) (95-100) % Farhad Test A-a Gradient a/A Ratio Hemoglobin Carboxyhemoglobin (0.0-6.9) % THgb Methemoglobin (1.4-1.5) % Potassium (3.5-5.1) Temperature C POC O2 Flow Rate % Sodium (136-145) mEq/L Chloride (98-107) mEq/L Carbon Dioxide (21-32) mEq/L Anion Gap (5-15) MEQ/L BUN (9-20) mg/dL Creatinine (0.55-1.30) mg/dl Estimated GFR ML/MIN Glucose (70-110) MG/DL Calcium (8.5-10.1) mg/dL Total Bilirubin (0.2-1.0) mg/dL AST (15-37) U/L ALT (12-78) U/L Alkaline Phosphatase (46-116) U/L Serum Total Protein (6.4-8.2) gm/dL Albumin (3.4-5.0) g/dL Ur Collection Type Urine Color (YELLOW) Urine Appearance (CLEAR) Urine pH (5-6) Ur Specific [place] (1.005-1.025) Urine Protein (Negative) Urine Ketones (NEGATIVE) Urine Blood (0-5) Khai/ul Urine Nitrite (NEGATIVE) Urine Bilirubin (NEGATIVE) Urine Urobilinogen (0-1) mg/dL Ur Leukocyte Esterase (NEGATIVE) Urine Microscopic RBC (0-2) /HPF Urine Bacteria (NEGATIVE) /HPF Urine Glucose (NEGATIVE) mg/dL Salicylates (2.8-20.0) mg/dl Urine Opiates Level (NEGATIVE) Ur Methadone (NEGATIVE) Acetaminophen (10-30) ug/ml Urine Barbiturates (NEGATIVE) Ur Phencyclidine (PCP) (NEGATIVE) Urine Amphetamine (NEGATIVE) U Benzodiazepine Level (NEGATIVE) Urine Cocaine (NEGATIVE) Urine Marijuana (THC) (NEGATIVE) Ethyl Alcohol (0.00-0.01) % Specimen Received - Progress Progress: improved Progress Note: 04/02/17 17:47 Pt initially had a BG of over 600 that went down to 200 after receiving a total of 15 units of regular insulin and 3 bags of NS. Pt does not show signs of DKA. Pt started complaining of lower back pain that the patient has been here before for similar complaints. Pt received dilaudid 1mg IV X 1 dose with relief of back pain. Pt feels better and the patient will be d/c home with F/U with PCP. - Departure Time of Disposition: 17:53 Departure Disposition: Home Clinical Impression: Hyperglycemia Condition: Stable Critical Care Time: Yes Critical Care Time(excluding separately billable procedures): 75-104 minutes Referrals: CHRISTINE MAYNARD MD [Primary Care Provider] - Additional Instructions: Follow up with your primary care doctor on Wednesday. Continue to take your insulin as prescribed. Return to the ER if you should feel weak, have back pain, chest pain or shortness of breath.
[2017-04-02 14:48] LABS: BASOPHIL % 0.2 % (0.0-0.4); Eosinophil % 1.1 % (0.00-5.0); Granulocytes % 89.4 % (36.0-66.0); Lymphocytes % 5.2 % (24.0-44.0); Mean Cell Volume 80.9 fl (78-100); Mean Corpuscular Hemoglobin 25.1 pg (26-32); Mean Platelet Volume 11.5 fl (6-9.5); Monocytes % 4.1 % (0.0-12.0); Platelet Count 234 K/mm3 (150-450); Red Blood Count 4.14 M/mm3 (4.1-5.6); Red Cell Distribution Width 14.5 % (11.5-14.0); White Blood Count 13.1 K/mm3 (4.0-10.5)
[2017-04-02 14:52] LABS: ADD URINE CULTURE? NO (NO); Bacteria RARE /HPF (NEGATIVE); Bilirubin NEGATIVE (NEGATIVE); Blood 250 Ery/ul (0-5); COMPLETE URINE MICROSCOPIC? YES; Collection Type VOID; Glucose 1000 mg/dL (NEGATIVE); Leukocyte Esterase NEGATIVE (NEGATIVE)
--- NOTE | 2017-04-02 15:02 | XRAY ---
Indication: Weakness. Comparison: March 19, 2017. Portable chest demonstrates new cardiomegaly and mild central vascular prominence. No infiltrate, consolidation, or large effusion. Bony thorax intact. Stable left arm PICC line. Impression: New cardiomegaly and central vascular prominence. Rule out fluid overload versus mild/early cardiac decompensation.
[2017-04-02 15:04] LABS: ALKALINE PHOSPHATASE 171 U/L (46-116); ANION GAP 13.4 MEQ/L (5-15); BLOOD UREA NITROGEN 19 mg/dL (9-20); CHLORIDE 91 mEq/L (98-107); Carbon Dioxide 28.1 mEq/L (21-32); Potassium 4.4 mEq/L (3.5-5.1); SGOT/AST 19 U/L (15-37); SGPT/ALT 6 U/L (12-78); SODIUM 128 mEq/L (136-145); Total Protein 7.9 gm/dL (6.4-8.2)
[2017-04-02 15:04] LABS: ACETAMINOPHEN < 2.0 ug/ml (10-30)
[2017-04-02] MEDS ORDERED: NovoLIN R IV ONE ×2 (15:05→16:09)
[2017-04-02] MEDS ORDERED: NovoLIN R ONE ×2 (15:09→16:21)
[2017-04-02 15:18] LABS: Glucose 642 MG/DL (70-110)
[2017-04-02] MEDS ORDERED: MORPHINE SULFATE 4 MG INJ IV ONE (15:26)
[2017-04-02] MEDS ORDERED: MORPHINE SULFATE 4 MG INJ ONE (15:33)
[2017-04-02] MEDS ORDERED: Hydromorphone 1 mg/ml Ampule IV ONE (16:23)
[2017-04-02] MEDS ORDERED: Hydromorphone 1 mg/ml Ampule ONE (16:38)
[2017-04-02 17:49] VITALS: O2SAT 96
[2017-04-02 18:04] VITALS: BP 109/77; PULSE 106
== END 2017-04-02 18:23 | disposition home or self-care (01) ==
LOC: ED 14:22
DX: R73.9 Hyperglycemia, unspecified (principal); M54.5 Low back pain; Z79.899 Other long term (current) drug therapy
CPT/HCPCS: 96374; 99285; 36000; 51702; 82962; 96360; 96361; 96375; 96376; 87040; 81000; 36415; 87070; 87186; 80307 ×2; 85025; 87077; 80053; 71010; 82803; 82375; 36600; G0481 ×2; J1170; J2270; A9270-GY

== ENCOUNTER 2017-04-09 10:16 | Emergency (ER) | payer MEDICARE ==
[2017-04-09 10:23] VITALS: BP 122/70; PULSE 101; O2SAT 95
[2017-04-09] MEDS ORDERED: Sodium Chloride 0.9% 1000 ML 1,000 ML IV STA (10:26)
[2017-04-09] MEDS ORDERED: SUBLIMAZE 100 MCG/2 ML IV ONE (10:26)
[2017-04-09] MEDS ORDERED: BENADRYL 50 MG/ML IV ONE (10:26)
--- NOTE | 2017-04-09 10:43 | ERPHSYRPT ---
- History of Present Illness Time Seen by Provider: 04/09/17 10:20 Source: patient, EMS Patient Subjective Stated Complaint: PT REPORTS SEVERE PAIN TO LOWER BACK- STATES HE IS TIRED OF THE PAIN ET WANTS ADMITTED TO THE HOSPITAL-STATES HE HAS AN EXTRA VERTEBRA IN HIS BACK-DENIES RECENT INJURY-STATES HE WAS SEPTIC NOT TO LONG AGO Triage Nursing Assessment: PT ARRIVED BY EMS MOANING ET MOVING ON BED-STATED SEVERAL TIMES FOR HIM TO BE ADMITTED TO THE HOSPITAL- Physician History: CC: pain Hx: 46 y/o pt of Dr Roman. He has chronic pain. He has diabetic foot infection treated operatively per Dr Joseph at Wednesday. He has hx of noncompliance. He was in ER last week and had positive blood cultures. He has pain all over, worse in hips. No fall or injury. He wants to be admitted to the rehab alf. No fever. PICC removed. Not on IV abtx any longer.Sugar was in 200's per EMS. Allergies/Adverse Reactions: bupropion HCl [From Wellbutrin] Allergy (Verified 03/30/17 00:29) "makes my skin crawl" tetracycline Allergy (Verified 03/30/17 00:29) hives Home Medications: Alprazolam [Xanax 0.5 mg] 1 - 2 tab PO Q4HPRN PRN 01/02/17 [History] Sumatriptan Succinate [Imitrex] 25 mg PO Q2H/PRN PRN 01/02/17 [History] Gabapentin 800 mg PO DAILY 03/30/17 [History] Hx Tetanus, Diphtheria Vaccination/Date Given: Yes (2015) Hx Influenza Vaccination/Date Given: No Hx Pneumococcal Vaccination/Date Given: No Immunizations Up to Date: Yes - Review of Systems Constitutional: Malaise, Weakness, No Fever, No Chills Eyes: No Symptoms Ears, Nose, & Throat: No Symptoms Respiratory: No Cough, No Dyspnea Cardiac: No Chest Pain Abdominal/Gastrointestinal: No Abdominal Pain, No Nausea, No Vomiting, No Diarrhea Musculoskeletal: Back Pain, Joint Pain, No Fall, No Injury Neurological: No Focal Weakness All Other Systems: Reviewed and Negative - Past Medical History Pertinent Past Medical History: Yes Neurological History: Seizures ENT History: No Pertinent History Cardiac History: Coronary Artery Disease, Hypertension, Myocardial Infarction ( [place]) Respiratory History: COPD, Sleep Apnea Endocrine Medical History: Diabetes Type II Musculoskeletal History: Arthritis, Other GI Medical History: No Pertinent History History: No Pertinent History Psycho-Social History: Depression, Other Male Reproductive Disorders: No Pertinent History Other Medical History: [place]. MARLI on CPAP - Past Surgical History Past Surgical History: Yes Neuro Surgical History: No Pertinent History Cardiac: Cardiac Catheterization, Cardiac Stent Respiratory: No Pertinent History Gastrointestinal: No Pertinent History Genitourinary: Other Musculoskeletal: Orthopedic Surgery Male Surgical History: Testicular Surgery Other Surgical History: Three heart stents, DVT. Foot Dr Joseph - Social History Smoking Status: Light tobacco smoker How long have you smoked: 30 years Exposure to second hand smoke: No Drug Use: marijuana Patient Lives Alone: No (lives at home with ) - Nursing Vital Signs Nursing Vital Signs: Initial Vital Signs Temperature 99.0 F 04/09/17 10:17 Pulse Rate 101 H 04/09/17 10:17 Respiratory Rate 20 04/09/17 10:17 Blood Pressure 122/70 04/09/17 10:17 O2 Sat by Pulse Oximetry 95 04/09/17 10:17 Pain Scale Pain Intensity 10 - Physical Exam General Appearance: alert Eye Exam: PERRL/EOMI Ears, Nose, Throat Exam: dry mucous membranes Neck Exam: normal inspection, supple Respiratory Exam: normal breath sounds Cardiovascular Exam: regular rate/rhythm Gastrointestinal/Abdomen Exam: soft, No tenderness, No distention Neurologic Exam: alert, oriented x 3, cooperative, No motor deficits Skin Exam: warm, dry SpO2 Interpretation: normal SpO2: 95 Oxygen Delivery: Room Air - Course Nursing assessment & vital signs reviewed: Yes EKG Interpreted by Me: RATE (108), Sinus Tach, NORMAL AXIS, NORMAL INTERVALS ( QTc 472), NORMAL QRS, NORMAL ST-T - Radiology Exams cxr X-ray Interpretation: Reviewed by me, Negative Ordered Tests: Active Orders 24 hr Category Date Time Status Accucheck STAT Care 04/09/17 13:27 Active Clean Catch Urine Specimen STAT Care 04/09/17 10:26 Active EKG-ER Only STAT Care 04/09/17 10:26 Active IV Insertion STAT Care 04/09/17 10:26 Active 1800 Calorie ADA Diet 04/09/17 Lunch Active CHEST 1 VIEW (PORTABLE) Stat Exams 04/09/17 10:27 Completed CBC W DIFF Stat Lab 04/09/17 10:54 Completed CMP Stat Lab 04/09/17 10:54 Completed MAGNESIUM Stat Lab 04/09/17 10:54 Completed UA W/RFX UR CULTURE Stat Lab 04/09/17 10:26 Ordered VENOUS BLOOD GAS Urgent Lab 04/09/17 10:55 Completed Medication Summary Discontinued Medications Generic Name Dose Route Start Last Admin Trade Name Chris PRN Reason Stop Dose Admin Diphenhydramine HCl 25 mg 04/09/17 10:26 04/09/17 11:26 Benadryl 50 Mg/Ml IV 04/09/17 10:27 25 mg STAT ONE Administration Diphenhydramine HCl Confirm 04/09/17 11:18 Benadryl 50 Mg/Ml Administered 04/09/17 11:19 Dose 50 mg .ROUTE .STK-MED ONE Fentanyl Citrate 100 mcg 04/09/17 10:26 04/09/17 11:26 Sublimaze 100 Mcg/2 Ml IV 04/09/17 10:27 100 mcg STAT ONE Administration Fentanyl Citrate Confirm 04/09/17 11:18 Sublimaze 100 Mcg/2 Ml Administered 04/09/17 11:19 Dose 100 mcg .ROUTE .STK-MED ONE Sodium Chloride 1,000 mls @ 999 mls/hr 04/09/17 10:26 04/09/17 11:26 Sodium Chloride 0.9% 1000 Ml IV 04/09/17 11:26 999 mls/hr .Q1H1M STA Administration Sodium Chloride Confirm 04/09/17 11:19 Sodium Chloride 0.9% 1000 Ml Administered 04/09/17 11:20 Dose 1,000 mls @ ud .ROUTE .STK-MED ONE Lab/Rad Data: Laboratory Result Diagrams 04/09/17 10:54 04/09/17 10:54 Laboratory Results 04/09/17 04/09/17 04/09/17 Range/Units 10:55 10:54 10:54 WBC (4.0-10.5) K/mm3 RBC (4.1-5.6) M/mm3 Hgb (12.5-18.0) gm/dl Hct (42-50) % MCV (78-100) fl MCH (26-32) pg MCHC (32-36) g/dl RDW (11.5-14.0) % Plt Count (150-450) K/mm3 MPV (6-9.5) fl Gran % (36.0-66.0) % Lymphocytes % (24.0-44.0) % Monocytes % (0.0-12.0) % Eosinophils % (0.00-5.0) % Basophils % (0.0-0.4) % Basophils # (0-0.4) VBG pH 7.45 H (7.32-7.42) VBG pCO2 at Pat Temp 49 (42-55) mm/Hg VBG pO2 at Pat Temp 26 (25-40) mm/Hg VBG HCO3 34.1 H* (22-28) meq/L VBG O2 Sat (Chhaya) 56.8 L (95-100) VBG Base Excess 8.8 H (-2.0-2.0) VBG Hemoglobin 11.2 VBG Carboxyhemoglobin 2.6 (0.0-6.9) % T HGB POC Potassium 5.0 (3.5-5.1) Sodium 133 L (136-145) mEq/L Potassium 4.9 (3.5-5.1) mEq/L Chloride 96 L (98-107) mEq/L Carbon Dioxide 32.9 H (21-32) mEq/L Anion Gap 8.5 (5-15) MEQ/L BUN 13 (9-20) mg/dL Creatinine 0.64 (0.55-1.30) mg/dl Estimated GFR > 60 ML/MIN Glucose 206 H (70-110) MG/DL Calcium 8.7 (8.5-10.1) mg/dL Magnesium 1.7 L (1.8-2.4) mg/dL Total Bilirubin 0.30 (0.2-1.0) mg/dL AST 15 (15-37) U/L ALT 15 (12-78) U/L Alkaline Phosphatase 176 H (46-116) U/L Serum Total Protein 7.7 (6.4-8.2) gm/dL Albumin 1.9 L (3.4-5.0) g/dL 04/09/17 Range/Units 10:54 WBC 12.2 H (4.0-10.5) K/mm3 RBC 4.02 L (4.1-5.6) M/mm3 Hgb 9.9 L (12.5-18.0) gm/dl Hct 32.5 L (42-50) % MCV 80.8 (78-100) fl MCH 24.6 L (26-32) pg MCHC 30.5 L (32-36) g/dl RDW 14.9 H (11.5-14.0) % Plt Count 353 (150-450) K/mm3 MPV 9.5 (6-9.5) fl Gran % 80.8 H (36.0-66.0) % Lymphocytes % 11.1 L (24.0-44.0) % Monocytes % 6.1 (0.0-12.0) % Eosinophils % 1.6 (0.00-5.0) % Basophils % 0.4 (0.0-0.4) % Basophils # 0.05 (0-0.4) VBG pH (7.32-7.42) VBG pCO2 at Pat Temp (42-55) mm/Hg VBG pO2 at Pat Temp (25-40) mm/Hg VBG HCO3 (22-28) meq/L VBG O2 Sat (Chhaya) (95-100) VBG Base Excess (-2.0-2.0) VBG Hemoglobin VBG Carboxyhemoglobin (0.0-6.9) % T HGB POC Potassium (3.5-5.1) Sodium (136-145) mEq/L Potassium (3.5-5.1) mEq/L Chloride (98-107) mEq/L Carbon Dioxide (21-32) mEq/L Anion Gap (5-15) MEQ/L BUN (9-20) mg/dL Creatinine (0.55-1.30) mg/dl Estimated GFR ML/MIN Glucose (70-110) MG/DL Calcium (8.5-10.1) mg/dL Magnesium (1.8-2.4) mg/dL Total Bilirubin (0.2-1.0) mg/dL AST (15-37) U/L ALT (12-78) U/L Alkaline Phosphatase (46-116) U/L Serum Total Protein (6.4-8.2) gm/dL Albumin (3.4-5.0) g/dL - Progress Progress Note: 04/09/17 12:18 [employer] [place] working on [facility] placement. 04/09/17 13:28 Pt hungry. Will get tray. Spoke to Dr Vasques. Ok for rehab. [facility] working on rehab. Foot wound appears well. 04/09/17 14:30 Pt stable. Ate full meal. Complains of diffuse pain that is non-specific. He was seen by [facility] and not felt to be rehab candidate. Spoke to Dr roman. [facility] will be set up. Will release home. Foot looks good today. Not in DKA. Counseled pt/family regarding: lab results, diagnosis, need for follow-up, rad results - Departure Time of Disposition: 14:31 Departure Disposition: Home Clinical Impression: Diabetic infection of left foot, Chronic pain syndrome, Hx of past noncompliance Condition: Stable Critical Care Time: No Referrals: CHRISTINE ROMAN MD [Primary Care Provider] - Instructions: Chronic Pain -- Adult Additional Instructions: Watch your sugars. Keep foot dressing clean and dry. [facility] evaluation sent. Call Dr Roman for follow up.
[2017-04-09 11:00] LABS: BASOPHIL % 0.4 % (0.0-0.4); Eosinophil % 1.6 % (0.00-5.0); Granulocytes % 80.8 % (36.0-66.0); Lymphocytes % 11.1 % (24.0-44.0); Mean Cell Volume 80.8 fl (78-100); Mean Corpuscular Hemoglobin 24.6 pg (26-32); Mean Platelet Volume 9.5 fl (6-9.5); Monocytes % 6.1 % (0.0-12.0); Platelet Count 353 K/mm3 (150-450); Red Blood Count 4.02 M/mm3 (4.1-5.6); Red Cell Distribution Width 14.9 % (11.5-14.0); White Blood Count 12.2 K/mm3 (4.0-10.5)
[2017-04-09 11:00] LABS: VBG BASE EXCESS 8.8 (-2.0-2.0); VBG CARBOXYHEMOGLOBIN 2.6 % T HGB (0.0-6.9); VBG HCO3- 34.1 meq/L (22-28); VBG HEMOGLOBIN 11.2; VBG O2 SATURATION 56.8 (95-100); VBG pH 7.45 (7.32-7.42)
--- NOTE | 2017-04-09 11:13 | XRAY ---
Indication: Diabetes. Comparison: April 02, 2017. Portable chest again demonstrates clear lungs with cardiomegaly. Previous left arm PICC line has been removed. No acute findings.
[2017-04-09] MEDS ORDERED: BENADRYL 50 MG/ML ONE (11:18)
[2017-04-09] MEDS ORDERED: SUBLIMAZE 100 MCG/2 ML ONE (11:18)
[2017-04-09] MEDS ORDERED: Sodium Chloride 0.9% 1000 ML 1,000 ML ONE (11:19)
[2017-04-09 11:22] LABS: ALBUMIN 1.9 g/dL (3.4-5.0); ALKALINE PHOSPHATASE 176 U/L (46-116); ANION GAP 8.5 MEQ/L (5-15); BLOOD UREA NITROGEN 13 mg/dL (9-20); CHLORIDE 96 mEq/L (98-107); Carbon Dioxide 32.9 mEq/L (21-32); Glucose 206 MG/DL (70-110); Potassium 4.9 mEq/L (3.5-5.1); SGOT/AST 15 U/L (15-37); SGPT/ALT 15 U/L (12-78); SODIUM 133 mEq/L (136-145); Total Protein 7.7 gm/dL (6.4-8.2)
[2017-04-09] MEDS ORDERED: NORCO 5/325 MG PO ONE (15:12)
[2017-04-09] MEDS ORDERED: NORCO 5/325 MG ONE (15:15)
== END 2017-04-09 15:38 | disposition home or self-care (01) ==
LOC: ED 10:16
DX: L08.89 Other specified local infections of the skin and subcutaneous tissue (principal); Z91.19 Patient's noncompliance with other medical treatment and regimen
CPT/HCPCS: 36415; 71010; 80053; 82805; 82962; 83735; 85025; 93005; 96360; 96374; 96375; 99284; 99285; J1200; J3010; A9270-GY